=== PATIENT | male | born 1950 | race Caucasian/White ===

== ENCOUNTER 2024-09-21 15:55 | Inpatient (IN) | payer OTHER, MEDICARE ==
[~2024-09-21] VITALS: Ht 162.6 cm; Wt 122.0 kg
[~2024-09-21 15:55] MED LIST: ALLO100T PO; ASPI81CH43 PO; ATOR10TA52 PO; BACL20TA PO; CETI10TA93 PO; GABA-1250 PO; HYDR25TA4 PO; MET25T PO; METF-370 PO; OMEP20TA44 PO; OXYB5TAB24 PO
[2024-09-21 16:42] LABS: Basophils # (auto) 0.1 10 ^3/uL (0-0.2); Basophils % (auto) 0.3 % (0.0-2.0); Eosinophils # (auto) 0 10 ^3/uL (0-0.8); Eosinophils % (auto) 0.1 % (0.0-7.0); Hematocrit 41.7 % (41.0-53.0); Hemoglobin 14.1 g/dL (13.5-17.5); Lymphocytes # (auto) 1.2 10 ^3/uL (0.4-5.4); Lymphocytes % (auto) 6.2 % (10.0-50.0); Mean Corpuscular Hemoglobin 27.7 pg (28.0-32.0); Mean Corpuscular Hgb Conc. 33.8 g/dL (32.0-36.0); Monocytes # (auto) 1.6 10 ^3/uL (0-1.3); Monocytes % (auto) 8.1 % (0.0-12.0); Neutrophils # (auto) 16.7 10 ^3/uL (1.6-8.6); Neutrophils % (auto) 85.3 % (37.0-80.0); Platelet Count (auto) 196 10^3/uL (140-450); Red Blood Cells 5.08 10^6/uL (4.5-5.90); White Blood Cell 19.6 10^3/uL (4.4-10.8)
--- NOTE | 2024-09-21 17:19 | DVH ---
Indication: pain Technique: CT axial images of the abdomen and pelvis are obtained without contrast. Coronal and sagit nova reformats were obtained. Radiation Dose Information: CTDI volume is 24.86 mGy. Dose-length product is 1277.04 mGy*cm Comparison: None FINDINGS: There is limited interpretation of the abdomen and pelvis without administration of intravenous contr ast. Lung bases demonstrate 6 mm right lower lobe pulmonary nodule. Indeterminate right adrenal nodule measuring 1 cm. 1.3 cm right adrenal myelolipoma. Left adrenal gla nd unremarkable. Spleen unremarkable. Pancreatic calcifications likely sequela of chronic pancreatit is changes. Cholecystectomy. Liver capsule mildly nodular morphology. 1 cm left hepatic lobe hypodens ity, incompletely characterized. The bilateral kidneys demonstrate no hydronephrosis / nephrolithiasis. Stomach is relatively nondistended. Small bowel loops are normal in caliber. Moderate volume stool in the colon. 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 Aortic atherosclerotic disease. Bladder wall thickening with extensive surrounding stranding. Bladder calculus measuring 1.3 cm. Smal l bilateral fat containing inguinal hernias. [id number] bilateral sacroiliac degenerative joint disease. Severe thoracolumbar degenerative d isc disease. IMPRESSION: 1. Bladder wall thickening with surrounding stranding, likely representing cystitis. 2. Bladder calculus measuring 1.3 cm. 3. 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 angiogram abdomen to appropriately characterize and evaluate. 4. Left hepatic lobe hypodense lesion measuring 1 cm which can be further characterized on a multipha sic MRI abdomen with and without contrast. 5. Indeterminate right adrenal nodule measuring 1 cm. Recommend MRI abdomen, adrenal mass protocol t o characterize. 6. A 6 mm right lower lobe pulmonary nodule. Recommend 7. Follow-up per Fleischner society criteria guidelines. Other findings as described.
[2024-09-21 17:47] LABS: Anion Gap 9 (5-15); Carbon Dioxide 26 mmol/L (20-31); Chloride 102 mmol/L (98-107); Potassium 3.5 mmol/L (3.5-5.1); Sodium 137 mmol/L (136-145)
[2024-09-21 17:48] LABS: Calcium 9.7 mg/dL (8.7-10.4)
[2024-09-21 17:53] LABS: BUN/Creatinine Ratio 13.1 (10.0-20.0); Blood Urea Nitrogen 14 mg/dL (9-23)
[2024-09-21 18:09] LABS: Glucose 249 mg/dL (74-106)
--- NOTE | 2024-09-21 19:44 | ED.PDOC ---
History of Present Illness HPI Comments 74-year-old male who comes in with chief complaint of shortness for breath and generalized weakness times approximately two weeks. The patient came from home and states that he has also been having some difficulty self cathing. This has been going on over the past few days. He has been having some dysuria as well as nausea. The patient states that over the past few days he has been outside working in the heat. The patient does have a history of kidney disease as well as BPH. Chief Complaint: Urinary Time Seen by MD: 15:56 Primary Care Provider: MI Reviewed Notes: Nurses Notes, Automotive Specialty Technician Notes, Medications, Allergies (No allergies to medications) Allergies: Coded Allergies: NO KNOWN ALLERGIES (Unverified , 03/06/15) Home Meds Active Scripts Aspirin (Asa) 81 Mg Ch, 81 MG PO DAILY, #30 Prov:ESTEFANY JAFFE MD 03/14/15 Metoprolol Tartrate (Lopressor) 25 Mg Tb, 25 MG PO BID, #60 Prov:ESTEFANY JAFFE MD 03/14/15 Reported Medications Oxybutynin Chloride (Ditropan Xl) 5 Mg Tab, 5 MG PO BID, TAB 03/06/15 Omeprazole (Cvs Omeprazole) 20 Mg Tab, 20 MG PO BIDAC, TAB 03/06/15 Metformin Hydrochloride (Metformin Hcl) 500 Mg Tab, 250 MG PO DAILY, #60 TAB 3 Refills 03/06/15 Hydrochlorothiazide (Hydrochlorothiazide) 25 Mg Tab, 1 TAB PO DAILY, #30 TAB 5 Refills 03/06/15 Gabapentin (Gabapentin) 300 Mg Cap, 1 CAP PO TID, #90 CAP 5 Refills 03/06/15 Cetirizine Hcl (Cetirizine Hcl) 10 Mg Tab, 10 MG PO DAILYP PRN for NASAL [place] ESTION, TAB 03/06/15 Baclofen (Baclofen) 20 Mg Tab, 1 TAB PO TID, #90 TAB 2 Refills 03/06/15 Atorvastatin Calcium (ATORVASTATIN CALCIUM) 10 Mg Tab, 1 TAB PO DAILY, #30 TAB 5 Refills 03/06/15 Allopurinol (Allopurinol) 100 Mg Tab, 100 MG PO DAILY for 30 Days, MG 03/06/15 Information Source: Patient, Emergency Med Personnel Mode of Arrival: EMS Severity: Moderate Past Medical History PAST MEDICAL HISTORY: Asthma, DM, High Lipids, HTN Surgical History: Appendectomy Family History Family History: Unobtainable Social History Smoker: Secondhand Alcohol: Denies ETOH Use Drugs: Denies Drug Use Lives In: Home Physical Exam General Appearance: Moderate Distress HEENT: Normal ENT Inspection, Pharynx Normal, TMs Normal Neck: Full Range of Motion, Non-Tender, Normal, Normal Inspection Respiratory: Chest Non-Tender, Lungs Clear, No Accessory Muscle Use, No Res piratory Distress, Normal Breath Sounds Cardiovascular: No Edema, No JVD, No Murmur, No Gallop, Normal Peripheral Pulses, Regular Rate/Rhythm Breast Exam: Deferred Gastrointestinal: No Organomegaly, Non Tender, No Pulsatile Mass, Normal Bowel Sounds, Soft Genitalia: Deferred Pelvic: Deferred Rectal: Deferred Extremities: No calf tenderness, Normal capillary refill, Normal inspection, Normal range of motion, Non-tender, No pedal edema Musculoskeletal : Apperance: Normal Neurologic: Alert, associate teacher II-XII nml as Tested, No Motor Deficits, Normal Affect, Normal Mood, No Sensory Deficits Cerebellar Function: Normal Reflexes: Normal Skin: Dry, Normal Color, Warm Lymphatic: No Adenopathy Was a procedure done? Was a procedure done?: No Differential Dx Considerations may include: Urinary retention, UTI, generalized weakness X-Ray, Labs, Meds, VS Vital Signs Date Time Temp Pulse Resp B/P (MAP) Pulse Ox O2 Delivery O2 Flow Rate FiO2 09/21/24 18:01 99.4 78 18 136/71 (92) 94 99.4 09/21/24 18:01 78 16 94 Room Air 09/21/24 16:05 98.6 78 14 140/79 (99) 94 98.6 09/21/24 15:55 77 Lab Test 09/21/24 17:02 09/21/24 16:20 Range/Units Sodium Level 137 136-145 mmol/L Potassium Level 3.5 3.5-5.1 mmol/L Chloride Level 102 98-107 mmol/L Carbon Dioxide Level 26 20-31 mmol/L Anion Gap 9 5-15 Blood Urea Nitrogen 14 9-23 mg/dL Creatinine 1.07 0.700-1.30 mg/dL Glomerular Filtration Rate Calc 72 >90 mL/min BUN/Creatinine Ratio 13.1 10.0-20.0 Serum Glucose 249 H 74-106 mg/dL Calcium Level 9.7 8.7-10.4 mg/dL White Blood Count 19.6 H 4.4-10.8 10^3/uL Red Blood Count 5.08 4.5-5.90 10^6/uL Hemoglobin 14.1 13.5-17.5 g/dL Hematocrit 41.7 41.0-53.0 % Mean Corpuscular Volume 82.0 80.0-100.0 fL Mean Corpuscular Hemoglobin 27.7 L 28.0-32.0 pg Mean Corpuscular Hemoglobin Concent 33.8 32.0-36.0 g/dL Red Cell Distribution Width 15.0 H 11.8-14.3 % Platelet Count 196 140-450 10^3/uL Mean Platelet Volume 7.9 6.9-10.8 fL Neutrophils (%) (Auto) 85.3 H 37.0-80.0 % Lymphocytes (%) (Auto) 6.2 L 10.0-50.0 % Monocytes (%) (Auto) 8.1 0.0-12.0 % Eosinophils (%) (Auto) 0.1 0.0-7.0 % Basophils (%) (Auto) 0.3 0.0-2.0 % Neutrophils # (Auto) 16.7 H 1.6-8.6 10 ^3/uL Lymphocytes # (Auto) 1.2 0.4-5.4 10 ^3/uL Monocytes # (Auto) 1.6 H 0-1.3 10 ^3/uL Eosinophils # (Auto) 0 0-0.8 10 ^3/uL Basophils # (Auto) 0.1 0-0.2 10 ^3/uL Nucleated Red Blood Cells 0.0 % Lactic Acid Level 1.8 0.4-2.0 mmol/L Scan of the abdomen and pelvis shows: IMPRESSION: 1. Bladder wall thickening with surrounding stranding, likely representing cystitis. 2. Bladder calculus measuring 1.3 cm. 3. 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 angiogram abdomen to appropriately characterize and evaluate. 4. Left hepatic lobe hypodense lesion measuring 1 cm which can be further characterized on a multiphasic MRI abdomen with and without contrast. 5. Indeterminate right adrenal nodule measuring 1 cm. Recommend MRI abdomen, adrenal mass protocol to characterize. 6. A 6 mm right lower lobe pulmonary nodule. Recommend The patient's CBC shows an elevated white blood cell count of 19.6 The patient's chemistry panel is within normal limits At this time we feel that the patient can be admitted to the hospitalist We feel that the patient is suffering from sepsis secondary to UTI The patient is being admitted at this time The patient will be started on Rocephin 1 g IV piggyback Images Reviewed?: Images reviewed and evaluated by me Time of 1ST Reevaluation: 19:54 Reevaluation 1ST: Unchanged Patient Education/Counseling: Diagnosis, Treatment, Prognosis Family Education/Counseling: No Family Present Sepsis Sepsis Reasesment Focused Exam Orders: Laboratory Tests 09/21/24 16:20: Lactic Acid Level 1.8 Departure 1 Departure Time of Disposition: 19:54 Impression: Primary Impression: Intractable abdominal pain Additional Impression: Sepsis secondary to UTI Disposition: ADMITTED INPATIENT Admit to: Med Surg Condition: Fair Critical Care Note Critical Care Time?: No Stability Stability form required: Yes Unstable for transfer: Telemetry monitoring (Telemetry monitoring required), ED Physician Assesment (Clinical assesment) Heart Score Heart Score: Heart Score Response (Comments) Value History N/A 0 EKG N/A 0 Age N/A 0 Risk Factors N/A 0 Troponin N/A 0 Total 0 PRINCESS CHANEY MD Sep 21, 2024 19:44
[2024-09-21] MEDS ORDERED: DOCUSATE SOD 100 MG CAP PO PRN (22:30)
[2024-09-21] MEDS ORDERED: MORPHINE SULFATE 4 MG/ML SYR/VIAL IV PRN (22:30)
[2024-09-21] MEDS ORDERED: NITROGLYCERIN 0.4 MG SL TAB SL PRN (22:30)
[2024-09-21] MEDS ORDERED: ONDANSETRON HCL 4 MG/2 ML VIAL IV PRN (22:30)
[2024-09-21] MEDS ORDERED: LORATADINE 10 MG TAB PO PRN (22:45)
--- NOTE | 2024-09-21 22:54 | DVHHPRES ---
History of Present Illness Resident Creating Document: OSWALD JETT RESIDENT History of Present Illness Mr. Rod, a 74-year-old male with a history of Asthma, DM, High Lipids, HTN, Gout and Appendectomy presented with a two-week history of shortness of breath and generalized weakness, along with recent difficulty self-catheterizing, dysuria, and nausea. He reported spending time working outdoors in the heat over the past few days, which may have contributed to his symptoms. He denies history of chronic kidney disease and benign prostatic hyperplasia (BPH). patient follows with [facility] limited history available publicly. Patient is asked to bring the medical documents for details. Grossly hemodynamically stable afebrile except mild distress. Review of Systems Constitutional: Yes: Chills, Malaise; No: Fever, Sweats, Weakness, Other Eyes: No: Pain, Vision change, Conjunctivae inflammation, Eyelid inflammation, Other, Redness ENT: No: Ear pain, Ear discharge, Nose pain, Nose discharge, Nose congestion, Mouth pain, Mouth swelling, Throat pain, Throat swelling, Other Respiratory: No: Cough, Dry, Shortness of breath, SOB with excertion, Wheezing, Hemoptysis, Pleuritic Pain, Sputum, Wheezing, Other Cardiovascular: No: Chest Pain, Palpitations, Orthopnea, Paroxysmal Noc. Dyspnea, Edema, Lt Headedness, Other Gastrointestinal: No: Nausea, Vomiting, Abdominal Pain, Diarrhea, Constipation, Melena, Hematochezia, Other Genitourinary: Dysuria, Frequency, Incontinence; No Hematuria; Retention; No Other Musculoskeletal: No: other, neck pain, shoulder pain, arm pain, back pain, hand pain, leg pain, foot pain Skin: No: Rash, Lesions, Jaundice, Bruising, Other Neurological: No: Weakness, Numbness, Incoordination, Change in speech, Confusion, Seizures, Other Allergies: Coded Allergies: NO KNOWN ALLERGIES (Unverified , 03/06/15) Medications Current Medications Medications Dose Ordered Sig/Tila Route Start Time Stop Time Status Last Admin Dose Admin Sodium Chloride 1,000 ml @ 120 mls/hr Q8H20M IV 09/21/24 22:30 Ondansetron HCl 4 mg Q4HP PRN IV 09/21/24 22:30 Docusate Sodium 100 mg BIDPRN PRN PO 09/21/24 22:30 Acetaminophen 650 mg Q6HP PRN PO 09/21/24 22:30 Morphine Sulfate 2 mg Q4HPRN PRN IV 09/21/24 22:30 Nitroglycerin 0.4 mg Q5MINP PRN SL 09/21/24 22:30 Morphine Sulfate 2 mg Q30M PRN IV 09/21/24 22:30 Allopurinol 100 mg DAILY PO 09/22/24 10:00 UNV Aspirin 81 mg DAILY PO 09/22/24 10:00 UNV Atorvastatin Calcium 10 mg HS PO 09/21/24 22:45 UNV Baclofen 10 mg TID PO 09/22/24 06:00 UNV Loratadine 10 mg HSPRN PRN PO 09/21/24 22:45 UNV Oxybutynin Chloride 5 mg BID PO 09/21/24 22:45 UNV Exam Vital Signs Vital Signs Date Time Temp Pulse Resp B/P (MAP) Pulse Ox O2 Delivery O2 Flow Rate FiO2 09/21/24 18:01 99.4 78 18 136/71 (92) 94 99.4 09/21/24 18:01 Room Air General Appearance: Alert, Oriented X3, Cooperative, No acute distress, mild distress, moderate distress, severe distress, Other HEENT: Atraumatic, PERRLA, EOMI, Mucous membr. moist/pink Respiratory: Clear to auscultation, Normal air movement Cardiovascular: Regular rate, Normal S1, Normal S2, No murmurs, Gallops, Rubs Abdominal: Normal bowel sounds, Soft, No tenderness, No hepatospenomegaly, No masses Extremities: No clubbing, No cyanosis, No edema, Normal pulses, No tenderness/swelling Skin: No rashes, No breakdown, No significant lesion Neuro: Normal gait, Normal speech, Strength at 5/5 X4 ext, Normal tone, Sensation intact, Cranial nerves 3-12 NL, Reflexes 2+, Other Psych/Mental Status: Mental status NL, Mood NL Labs/Xrays Labs Test 09/21/24 22:41 09/21/24 16:20 Range/Units White Blood Count 19.6 H 4.4-10.8 10^3/uL Red Blood Count 5.08 4.5-5.90 10^6/uL Hemoglobin 14.1 13.5-17.5 g/dL Hematocrit 41.7 41.0-53.0 % Mean Corpuscular Volume 82.0 80.0-100.0 fL Mean Corpuscular Hemoglobin 27.7 L 28.0-32.0 pg Mean Corpuscular Hemoglobin Concent 33.8 32.0-36.0 g/dL Red Cell Distribution Width 15.0 H 11.8-14.3 % Platelet Count 196 140-450 10^3/uL Mean Platelet Volume 7.9 6.9-10.8 fL Neutrophils (%) (Auto) 85.3 H 37.0-80.0 % Lymphocytes (%) (Auto) 6.2 L 10.0-50.0 % Monocytes (%) (Auto) 8.1 0.0-12.0 % Eosinophils (%) (Auto) 0.1 0.0-7.0 % Basophils (%) (Auto) 0.3 0.0-2.0 % Neutrophils # (Auto) 16.7 H 1.6-8.6 10 ^3/uL Lymphocytes # (Auto) 1.2 0.4-5.4 10 ^3/uL Monocytes # (Auto) 1.6 H 0-1.3 10 ^3/uL Eosinophils # (Auto) 0 0-0.8 10 ^3/uL Basophils # (Auto) 0.1 0-0.2 10 ^3/uL Nucleated Red Blood Cells 0.0 % Lactic Acid Level 1.8 0.4-2.0 mmol/L Assessment/Plan Assessment/Plan Assessment: # UTI, acute cystitis # sepsis due to above, lactic negative # cystic calculus measuring 1.3 cm, in the bladder # 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 # Left hepatic lobe hypodense lesion , needs further workup outpatient # Indeterminate right adrenal nodule measuring 1 cm, outpatient workup to consider. # History of 2nd hand smoke with 6 mm right lower lobe pulmonary nodule, close follow up outpatient was admitted # History of gout follow on patient is on allopurinol 100 mg p.o. daily # hyperlipidemia: Atorvastatin 10 mg p.o. daily. # osteoarthritis likely age related. # back pain likely due to above: Baclofen 10 mg p.o. t.i.d., gabapentin 300 p.o. t.i.d., # Essential hypertension: moderately controlled, on metoprolol tartrate 25 mg p.o. b.i.d., HCTZ head 25 mg p.o. daily, # history of diabetes mellitus, moderately controlled, at home metformin 500 p .o. b.i.d. # GERD, omeprazole 20 mg p.o. b.i.d.. # Bladder spasm: oxybutynin XL, 5 mg p.o. b.i.d. # allergic rhinitis/seasonal allergy, citrus in 10 mg p.o. p.r.n. # Grade III obesity with BMI 43.7 # H/o Cholelithiasis without evidence of cholecystitis. # Diabetes mellitus, type 2 with polyneuropathy. # Ventral hernia. # Chronic Constipation. # Polypharmacy meeting Beer's criteria with high fall risk Plan: # Daily CBC, CMP for now, blood cultures, urine culture, UA pending. # IV Zosyn for now, no previous history of resistant bugs. Coming from home , no recent hospitalization. # Recommend dedicated CT angiogram abdomen to appropriately characterize and evaluate. # PT evaluation pending. Given advanced age follow up fall precaution to continue for advanced discharge planning if need consult SW. # Left hepatic lobe hypodense lesion measuring 1 cm which can be further characterized on a multiphasic MRI abdomen with and without contrast. # Indeterminate right adrenal nodule measuring 1 cm. Recommend MRI abdomen, adrenal mass protocol to characterize. # Outpatient lung nodule follow up. # Given advanced age and sepsis, liberal blood pressure control, holding home metoprolol tartrate rate and hydrochlorothiazide for now. Targeted blood pressure 130/90 With the keeping MAP> 65 is reasonable. # continue allopurinol, atorvastatin, aspirin, baclofen, gabapentin, and oxybutynino # home cetirizine and omeprazole to be exchanged for loratadine and pantoprazole respectively in hospital Code status: Full code, addictions counselor care discussion with the plan of care needing 39 minutes. Patient is agreeable. Admitted for inpatient care of acute UTI as inpatient telemetry. Case discussed with Dr. Rahman. Plan discussed with: Patient My Orders Orders - OSWALD JETT RESIDENT Procedure Category Date Status Time Admit ADMIT 09/21/24 Transmitted 22:20 Allergies CRISTIN 09/21/24 In Process 22:20 Code Status CODE 09/21/24 Transmitted 22:20 Sodium Chloride 0.9% PHA 09/21/24 In Process 22:30 Ondansetron Hcl PHA 09/21/24 In Process (Zofran) 22:30 Docusate Sodium PHA 09/21/24 In Process Capsule (Colace 22:30 Fall Risk Precautions CRISTIN 09/21/[address] 22:20 Complete Blood Count LAB 09/22/24 Verified 04:00 Comprehensive LAB 09/22/24 Verified Metabolic Panel 04:00 Pt Request For Service PT 09/21/24 Logged 22:20 Condition: Serious CRISTIN 09/21/24 In Process 22:20 Acetaminophen Tablet PHA 09/21/24 In Process (Tylenol Tablet) 22:30 Clear Liq Diet DIET 09/22/24 Transmitted Breakfast Bedrest With Bathroom CRISTIN 09/21/24 In Process Privileg 22:20 Bedside Commode CRISTIN 09/21/24 In Process 22:20 Nitroglycerin PHA 09/21/24 In Process Sublingual (Ntrostat 22:30 Oxygen By Nasal RT 09/21/24 Transmitted Cannula 22:20 Stat Ekg For Chest CRISTIN 09/21/24 In Process Pain 22:20 Notify Of Changes CRISTIN 09/21/24 In Process From Base 22:20 Lab Analyst For CRISTIN 09/21/24 In Process 24 Hours 22:20 Emergency Dysrhythmia CRISTIN 09/21/24 In Process Protocol 22:20 Rhythm Strips Once CRISTIN 09/21/24 In Process Every Shift 22:20 Comprehensive LAB 09/21/24 In Process Metabolic Panel 22:23 Urine Bacterial JERICA 09/21/24 Logged Culture 22:23 Urinalysis LAB 09/21/24 Logged 22:23 Drug Screen LAB 09/21/24 Logged 22:23 Morphine Sulfate PHA 09/21/24 In Process Injection 22:30 Morphine Sulfate PHA 09/21/24 In Process Injection 22:30 Allopurinol Tablet PHA 09/22/24 Transmitted (Zyloprim Tablet) 10:00 Aspirin Tablet PHA 09/22/24 Transmitted 10:00 Atorvastatin (Lipitor) PHA 09/21/24 Transmitted 22:45 Baclofen Tablet PHA 09/22/24 Transmitted (Liorisal Tablet) 06:00 Loratadine Tablet PHA 09/21/24 Transmitted (Claritin Tablet) 22:45 Oxybutynin Chloride PHA 09/21/24 Transmitted Tablet (Ditropan Tab 22:45 Fall Precautions CRISTIN 09/21/24 Transmitted Initiated 22:38 Fall Risk Precautions CRISTIN 09/21/[address] 22:38 Hemoglobin A1c LAB 09/21/24 Transmitted 22:38 Date of Service: Sep 21, 2024 Billing Provider: EMILEE RAHMAN MD Common Visit Codes: [id number] INP/OBS CARE (HIGH) Secondary Visit Codes: [id number] CARE PLAN 30 MINUTES OSWALD JETT RESIDENT Sep 21, 2024 22:54 EMILEE RAHMAN MD Sep 23, 2024 22:18
[2024-09-21 23:14] LABS: Alanine Aminotransferase 13 U/L (7-40); Albumin 4.3 g/dL (3.2-4.8); Alkaline Phosphatase 104 U/L (46-116); Anion Gap 8 (5-15); BUN/Creatinine Ratio 13.2 (10.0-20.0); Blood Urea Nitrogen 15 mg/dL (9-23); Calcium 9.7 mg/dL (8.7-10.4); Carbon Dioxide 26 mmol/L (20-31); Chloride 103 mmol/L (98-107); Potassium 3.7 mmol/L (3.5-5.1); Sodium 137 mmol/L (136-145); Total Protein 7.4 g/dL (5.7-8.2)
[2024-09-21 23:15] LABS: Aspartate Aminotransferase 10 U/L (13-40); Bilirubin, Total 2.5 mg/dL (0.2-1.0); Glucose 225 mg/dL (74-106)
[2024-09-22] VITALS (8 sets, daily range): BP systolic 115–139; BP diastolic 55–76; PULSE 62–79; RESP 14–18; TEMP 98–99; O2SAT 91–94
[2024-09-22] MEDS ORDERED: DEXTROSE (50%) 50ML SYRG IV PRN
[2024-09-22] MEDS ORDERED: INSU1INJ26 SC (01:58)
[2024-09-22] MEDS: ATORVASTATIN 20 MG TAB PO SCH (02:09)
[2024-09-22] MEDS: OXYBUTYNIN CHL 5 MG TAB PO SCH (02:09)
[2024-09-22] MEDS: SODIUM CHLORIDE 0.9% 1,000 ML IV SCH ×2 (02:09→13:59)
[2024-09-22] MEDS: cefTRIAXone 1GM/50ML D5W 50 ML IV ONE ×2 (02:09→13:58)
[2024-09-22] MEDS: MORPHINE SULFATE 4 MG/ML SYR/VIAL IV PRN (03:26)
[2024-09-22] MEDS: ACETAMINOPHEN 325 MG TAB PO PRN (03:40)
[2024-09-22 03:49] LABS: Urine Bacteria None Seen /hpf (None Seen)
[2024-09-22 04:11] LABS: Amphetamine Screen, Urine Neg (NEGATIVE)
[2024-09-22 04:13] LABS: Barbiturate Scree,Urine Neg (NEGATIVE); Benzodiazephine Screen, Urine Neg (NEGATIVE); Cannabinoid Screen, Urine Neg (NEGATIVE); Cocaine Screen, Urine Neg (NEGATIVE); Opiate Scree,Urine Pos (NEGATIVE); Phencyclidine Screen, Urine Neg (NEGATIVE)
[2024-09-22 04:46] LABS: Urine Blood 2+ /uL (Negative); Urine Clarity Ex.Turbid (Clear); Urine Color Light-Orange (Yellow); Urine Protein, UAD 1+ (Negative); Urine Specific Gravity 1.017 (1.001-1.035); Urine Squamous Epithelial Cell None Seen /hpf (<5); Urine Urobilinogen Normal (Negative); Urine WBC 1959 /HPF (0-3); Urine WBC Clumps PRESENT /hpf (None Seen); Urine pH 5.5 (5.0-9.0)
[2024-09-22 05:53] LABS: Basophils # (auto) 0 10 ^3/uL (0-0.2); Basophils % (auto) 0.2 % (0.0-2.0); Eosinophils # (auto) 0 10 ^3/uL (0-0.8); Eosinophils % (auto) 0.2 % (0.0-7.0); Hematocrit 37.7 % (41.0-53.0); Hemoglobin 12.8 g/dL (13.5-17.5); Lymphocytes % (auto) 6.4 % (10.0-50.0); Mean Corpuscular Hemoglobin 27.3 pg (28.0-32.0); Mean Corpuscular Hgb Conc. 33.9 g/dL (32.0-36.0); Mean Corpuscular Volume 80.6 fL (80.0-100.0); Monocytes # (auto) 1.2 10 ^3/uL (0-1.3); Monocytes % (auto) 7.6 % (0.0-12.0); Neutrophils # (auto) 13.5 10 ^3/uL (1.6-8.6); Neutrophils % (auto) 85.6 % (37.0-80.0); Nucleated Red Blood Cells % 0.1 %; Platelet Count (auto) 185 10^3/uL (140-450); Red Blood Cells 4.68 10^6/uL (4.5-5.90); White Blood Cell 15.7 10^3/uL (4.4-10.8)
[2024-09-22] MEDS: InsuLIN REG 1unit/0.01ml Soln (100units/ml) SC SCH (06:07)
[2024-09-22] MEDS: BACLOFEN 10 MG TAB PO SCH (06:08)
[2024-09-22 06:11] LABS: Alanine Aminotransferase 11 U/L (7-40); Albumin 3.7 g/dL (3.2-4.8); Alkaline Phosphatase 93 U/L (46-116); Anion Gap 7 (5-15); BUN/Creatinine Ratio 17.2 (10.0-20.0); Blood Urea Nitrogen 17 mg/dL (9-23); Calcium 9.1 mg/dL (8.7-10.4); Carbon Dioxide 28 mmol/L (20-31); Chloride 103 mmol/L (98-107); Potassium 3.5 mmol/L (3.5-5.1); Sodium 138 mmol/L (136-145); Total Protein 6.4 g/dL (5.7-8.2)
[2024-09-22] MEDS: ACCU-CHEK COMFORT CURVE STRIP VI SCH (06:11)
[2024-09-22 06:14] LABS: Aspartate Aminotransferase 9 U/L (13-40); Bilirubin, Total 1.3 mg/dL (0.2-1.0); Glucose 221 mg/dL (74-106)
[2024-09-22] MEDS: INSULIN LANTUS (GLARGINE) 1 /0.01ml (100units/ml) SC SCH (09:21)
[2024-09-22] MEDS: ALLOPURINOL 100 MG TAB PO SCH (09:33)
[2024-09-22] MEDS: ASPirin 81 mg TAB PO SCH (09:34)
--- NOTE | 2024-09-22 13:37 | DVHPN2 ---
Reviewed: Care Plan, H&P, Labs, Medications, Previous Orders, Radiology Changes from previous H/P or p: No Changes Eyes: No Pain, No Vision change, No Conjunctivae inflammation, No Eyelid inflammation, No Other, No Redness ENT: No Ear pain, No Ear discharge, No Nose pain, No Nose discharge, No Nose congestion, No Mouth pain, No Mouth swelling, No Throat pain, No Throat swelling, No Other Cardiovascular: No Chest Pain, No Palpitations, No Orthopnea, No Paroxysmal Noc. Dyspnea, No Edema, No Lt Headedness, No Other Respiratory: No Cough, No Dry, No Shortness of breath, No SOB with excertion, No Wheezing, No Hemoptysis, No Pleuritic Pain, No Sputum, No Other Gastrointestinal: No Nausea, No Vomiting, No Abdominal Pain, No Diarrhea, No Constipation, No Melena, No Hematochezia, No Other Genitourinary: Dysuria, Frequency, Incontinence; No Hematuria; Retention; No Other Musculoskeletal: No other, No neck pain, No shoulder pain, No arm pain, No back pain, No hand pain, No leg pain, No foot pain Skin: No Rash, No Lesions, No Jaundice, No Bruising, No Other Objective Vitals Vital Signs Date Time Temp Pulse Resp B/P (MAP) Pulse Ox O2 Delivery O2 Flow Rate FiO2 09/22/24 12:57 98.1 63 17 115/55 (75) 94 98.1 09/22/24 08:00 Room Air* 0 21 Intake/Output Intake and Output 09/22/24 07:00 Intake Total 200 ml Output Total 850 ml Balance -650 ml Intake Oral 200 ml Output Urine Total 850 ml Medications Current Medications Medications Dose Ordered Sig/Tila Route Start Time Stop Time Status Last Admin Dose Admin Sodium Chloride 1,000 ml @ 120 mls/hr Q8H20M IV 09/21/24 22:30 09/22/24 06:10 120 MLS/HR Ondansetron HCl 4 mg Q4HP PRN IV 09/21/24 22:30 Docusate Sodium 100 mg BIDPRN PRN PO 09/21/24 22:30 Acetaminophen 650 mg Q6HP PRN PO 09/21/24 22:30 09/22/24 03:40 650 MG Morphine Sulfate 2 mg Q4HPRN PRN IV 09/21/24 22:30 09/22/24 03:26 2 MG Nitroglycerin 0.4 mg Q5MINP PRN SL 09/21/24 22:30 Morphine Sulfate 2 mg Q30M PRN IV 09/21/24 22:30 Allopurinol 100 mg DAILY PO 09/22/24 10:00 09/22/24 09:33 100 MG Aspirin 81 mg DAILY PO 09/22/24 10:00 09/22/24 09:34 81 MG Atorvastatin Calcium 10 mg HS PO 09/21/24 22:45 09/22/24 02:09 10 MG Baclofen 10 mg TID PO 09/22/24 06:00 09/22/24 06:08 10 MG Loratadine 10 mg HSPRN PRN PO 09/21/24 22:45 Oxybutynin Chloride 5 mg BID PO 09/21/24 22:45 09/22/24 09:32 5 MG Diagnostic Test (Pha) 1 strip ACHS 09/22/24 07:00 09/22/24 11:41 1 STRIP Insulin Human Regular ACHS SC 09/22/24 07:00 09/22/24 11:41 4 UNITS Dextrose 50 ml UD PRN IV 09/22/24 00:00 Insulin Glargine 20 units DAILY@1000 SC 09/22/24 08:00 09/22/24 09:21 20 UNITS Laboratory Results Laboratory Tests 09/22/24 05:23 Chemistry Test 09/21/24 17:02 09/21/24 22:41 09/22/24 05:23 Calcium Level 9.7 mg/dL (8.7-10.4) 9.7 mg/dL (8.7-10.4) 9.1 mg/dL (8.7-10.4) Albumin 4.3 g/dL (3.2-4.8) 3.7 g/dL (3.2-4.8) Total Protein 7.4 g/dL (5.7-8.2) 6.4 g/dL (5.7-8.2) LFT Test 09/21/24 22:41 09/22/24 05:23 Alanine Aminotransferase (ALT) 13 U/L (7-40) 11 U/L (7-40) Alkaline Phosphatase 104 U/L (46-116) 93 U/L (46-116) Aspartate Amino Transferase (AST) 10 U/L (13-40) L 9 U/L (13-40) L Total Bilirubin 2.5 mg/dL (0.2-1.0) H 1.3 mg/dL (0.2-1.0) H HgA1c, TSH Test 09/21/24 16:20 Hemoglobin A1c 9.1 % A1C (<5.7) H Urinalysis Test 09/22/24 03:30 Urine Color Light-orange (Yellow) Urine Clarity Ex.turbid (Clear) Urine pH 5.5 (5.0-9.0) Urine Specific [place] 1.017 (1.001-1.035) Urine Protein 1+ (Negative) H Urine Ketones Trace (Negative) Urine Blood 2+ /uL (Negative) H Urine Nitrite 2+ (Negative) H Urine Bilirubin Negative (Negative) Urine Urobilinogen Normal mg/dL (Negative) Urine Leukocyte Esterase 3+ /uL (Negative) Urine RBC 158 /hpf (0 - 3) Urine WBC Clumps Present /hpf (None Seen) Urine Microscopic WBC 1959 /HPF (0-3) H Urine Squamous Epithelial Cells None seen /hpf (<5) Urine Bacteria None seen /hpf (None Seen) Urine Glucose 3+ mg/dL (Normal) H Labs and/or images reviewed: Labs reviewed by me, Image(s) reviewed by me Assessment/Plan Assessment/Plan Sepsis secondary to urinary tract infection WBC 20 K: Blood cultures urine cultures, Rocephin Bladder calculus 1.3 cm Gout Hypercholesterolemia Osteoarthritis Hypertension Diabetes Diabetic neuropathy vasculopathy Ventral hernia Chronic back pain BPH patient does self catheterization at home. Time Spent 70 minutes Advanced care planning time 20 minutes Patient is full code Plan discussed with: Patient My Orders Orders - RACHEL CASAS MD Procedure Category Date Status Time Communication Order ORDERS 09/22/24 Transmitted 13:25 Date of Service: Sep 22, 2024 Billing Provider: RACHEL CASAS MD Common Visit Codes: [id number] CARE 30-74 MIN RACHEL CASAS MD Sep 22, 2024 13:37
[2024-09-22] MEDS ORDERED: KETOROLAC TROMETH 30 MG/ML 1ML VIAL IV PRN (13:45)
[2024-09-22] MEDS: KETOROLAC TROMETH 30 MG/ML 1ML VIAL IV PRN (17:45)
--- NOTE | 2024-09-22 18:46 | ECG ---
[facility] Test Date: 2024-09-21 Test Time: 15:53:36 Pat Name: CARLOS JURADO Department: ED Room: 0286T Gender: M [employer]el Bearing Maker: ANUPAMA : [id number] Requested By: PRINCESS CHANEY Order Number: [id number] Reading MD: Edgar Molina Measurements Intervals [place] Rate: 77 P: -33 WV: 199 QRS: -69 QRSD: 124 T: 56 QT: 398 QTc: 451 Interpretive Statements Sinus rhythm Nonspecific IVCD with LAD Consider anterior infarct Baseline wander in lead(s) V6 Electronically Signed On 09-26-2024 20:36:55 PDT by Edgar Molina Please click the below link to view image of tracing.
[2024-09-23] VITALS (8 sets, daily range): BP systolic 105–145; BP diastolic 57–82; PULSE 62–78; RESP 17–18; TEMP 97.5–99; O2SAT 94–97
[2024-09-23] MEDS: cefTRIAXone 1GM/50ML D5W 50 ML IV SCH (09:00)
--- NOTE | 2024-09-23 12:23 | DVHPN2 ---
Reviewed: Care Plan, H&P, Labs, Medications, Previous Orders, Radiology Changes from previous H/P or p: No Changes Eyes: No Pain, No Vision change, No Conjunctivae inflammation, No Eyelid inflammation, No Other, No Redness ENT: No Ear pain, No Ear discharge, No Nose pain, No Nose discharge, No Nose congestion, No Mouth pain, No Mouth swelling, No Throat pain, No Throat swelling, No Other Cardiovascular: No Chest Pain, No Palpitations, No Orthopnea, No Paroxysmal Noc. Dyspnea, No Edema, No Lt Headedness, No Other Respiratory: No Cough, No Dry, No Shortness of breath, No SOB with excertion, No Wheezing, No Hemoptysis, No Pleuritic Pain, No Sputum, No Other Gastrointestinal: No Nausea, No Vomiting, No Abdominal Pain, No Diarrhea, No Constipation, No Melena, No Hematochezia, No Other Genitourinary: Dysuria, Frequency, Incontinence; No Hematuria; Retention; No Other Musculoskeletal: No other, No neck pain, No shoulder pain, No arm pain, No back pain, No hand pain, No leg pain, No foot pain Skin: No Rash, No Lesions, No Jaundice, No Bruising, No Other Objective Vitals Vital Signs Date Time Temp Pulse Resp B/P (MAP) Pulse Ox O2 Delivery O2 Flow Rate FiO2 09/23/24 09:00 98.9 65 18 136/76 (96) 96 98.9 09/23/24 08:00 Room Air* 0 21 Intake/Output Intake and Output 09/23/24 07:00 Intake Total 3285 ml Output Total 1500 ml Balance 1785 ml Intake Oral 1375 ml IV Total 1910 ml Output Urine Total 1500 ml # Bowel Movements 1 Medications Current Medications Medications Dose Ordered Sig/Tila Route Start Time Stop Time Status Last Admin Dose Admin Ondansetron HCl 4 mg Q4HP PRN IV 09/21/24 22:30 Docusate Sodium 100 mg BIDPRN PRN PO 09/21/24 22:30 Acetaminophen 650 mg Q6HP PRN PO 09/21/24 22:30 09/22/24 03:40 650 MG Morphine Sulfate 2 mg Q4HPRN PRN IV 09/21/24 22:30 09/22/24 03:26 2 MG Nitroglycerin 0.4 mg Q5MINP PRN SL 09/21/24 22:30 Morphine Sulfate 2 mg Q30M PRN IV 09/21/24 22:30 Allopurinol 100 mg DAILY PO 09/22/24 10:00 09/23/24 10:16 100 MG Aspirin 81 mg DAILY PO 09/22/24 10:00 09/23/24 10:16 81 MG Atorvastatin Calcium 10 mg HS PO 09/21/24 22:45 09/22/24 20:54 10 MG Baclofen 10 mg TID PO 09/22/24 06:00 09/23/24 05:57 10 MG Loratadine 10 mg HSPRN PRN PO 09/21/24 22:45 Oxybutynin Chloride 5 mg BID PO 09/21/24 22:45 09/23/24 10:16 5 MG Diagnostic Test (Pha) 1 strip ACHS 09/22/24 07:00 09/23/24 11:44 1 STRIP Insulin Human Regular ACHS SC 09/22/24 07:00 09/23/24 11:44 6 UNITS Dextrose 50 ml UD PRN IV 09/22/24 00:00 Insulin Glargine 20 units DAILY@1000 SC 09/22/24 08:00 09/23/24 09:56 20 UNITS Ceftriaxone Sodium 50 ml @ 100 mls/hr DAILY@09 IV 09/23/24 09:00 09/23/24 09:00 100 MLS/HR Sodium Chloride 1,000 ml @ 150 mls/hr Q6H40M IV 09/22/24 13:45 09/23/24 09:45 150 MLS/HR Ketorolac Tromethamine 15 mg Q6HPRN PRN IV 09/22/24 14:00 09/27/24 13:59 09/23/24 10:14 15 MG Laboratory Results Laboratory Tests 09/22/24 05:23 Urinalysis Test 09/22/24 03:30 Urine Color Light-orange (Yellow) Urine Clarity Ex.turbid (Clear) Urine pH 5.5 (5.0-9.0) Urine Specific [place] 1.017 (1.001-1.035) Urine Protein 1+ (Negative) H Urine Ketones Trace (Negative) Urine Blood 2+ /uL (Negative) H Urine Nitrite 2+ (Negative) H Urine Bilirubin Negative (Negative) Urine Urobilinogen Normal mg/dL (Negative) Urine Leukocyte Esterase 3+ /uL (Negative) Urine RBC 158 /hpf (0 - 3) Urine WBC Clumps Present /hpf (None Seen) Urine Microscopic WBC 1959 /HPF (0-3) H Urine Squamous Epithelial Cells None seen /hpf (<5) Urine Bacteria None seen /hpf (None Seen) Urine Glucose 3+ mg/dL (Normal) H Microbiology Microbiology Date/Time Source Procedure Growth Status 09/21/24 17:02 Blood Blood Culture - Preliminary NO GROWTH AFTER 24 HOURS OF INCUBATION. Resulted Labs and/or images reviewed: Labs reviewed by me, Image(s) reviewed by me Assessment/Plan Assessment/Plan Sepsis secondary to urinary tract infection WBC 20 K: Blood cultures negative, urine cultures pending, continue Rocephin Bladder calculus 1.3 cm consult for Urology Dr. Castro Gout Hypercholesterolemia Osteoarthritis Hypertension Diabetes Diabetic neuropathy vasculopathy Ventral hernia Chronic back pain Stenosis of the celiac artery: Cardiology consult by Dr. Gerson Hoyt 1 cm hypodense lesion left lobe of the liver: MRI of the abdomen with and without contrast ordered BPH patient does self catheterization at home. Time Spent 50 minutes Advanced care planning time 20 minutes Patient is full code Plan discussed with: Patient My Orders Orders - RACHEL CASAS MD Procedure Category Date Status Time Communication Order ORDERS 09/22/24 Transmitted 13:25 Ceftriaxone 1gm/50ml PHA 09/23/24 In Process D5w (Rocephin) 09:00 Sodium Chloride 0.9% PHA 09/22/24 In Process 13:45 Soft Diet DIET 09/22/24 Transmitted Dinner Ketorolac Injection PHA 09/22/24 In Process (Toradol Injection) 14:00 Date of Service: Sep 23, 2024 Billing Provider: RACHEL CASAS MD Common Visit Codes: [id number] INP/OBS CARE(HIGH) RACHEL CASAS MD Sep 23, 2024 12:23
[2024-09-23] MEDS ORDERED: GADOTERATE MEG 10 MMOL/20ml INJ (0.5MMOL/ml) IV ONE (16:31)
--- NOTE | 2024-09-23 17:20 | DVHINCON2 ---
Date Seen: Sep 23, 2024 Referring Physician MD Kenney Reason for Consultation Stenosis of proximal celiac artery History of Present Illness This is a 74-year-old male patient who presents to the emergency room with chief complaint of generalized weakness and urinary retention. He comes to the emergency room for further evaluation. Cardiology has been consulted at this time for stenosis of proximal celiac artery. The patient denies any cardiac symptoms. Unable to obtain twelve lead electrocardiogram as it is not in patient's hard chart. 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 No troponin levels drawn during this admission. Significant past medical history includes obstructive sleep apnea with CPAP use, COPD, type 2 diabetes mellitus, chronic kidney disease, benign prostatic hyperplasia with urinary retention requiring self catheterization, PTSD, and morbid obesity. Past Medical History Past medical history reviewed. No other significant than mentioned above. Past Surgical History Cholecystectomy Family History: FH: ADHD (attention deficit hyperactivity disorder) G8 BROTHER 19 CHILD Family history: Asthma G8 MOTHER Family history: Cardiovascular disease G8 SISTER Family History Family history reviewed. Social History The patient has a 25 pack-year history, quit smoking approximately 36 years ago Denies any illicit drug use Denies any alcohol use Allergies: Coded Allergies: NO KNOWN ALLERGIES (Unverified , 03/06/15) Home Meds Active Scripts Aspirin (Asa) 81 Mg Ch, 81 MG PO DAILY, #30 Prov:ESTEFANY JAFFE MD 03/14/15 Metoprolol Tartrate (Lopressor) 25 Mg Tb, 25 MG PO BID, #60 Prov:ESTEFANY JAFFE MD 03/14/15 Reported Medications Insulin Aspart Protamine & Asp (Insulin Aspart Protamine/ (70-30) 100 Unit/ml) 1 Inj Inj, 1 INJ SC BID, INJ 09/22/24 Oxybutynin Chloride (Ditropan Xl) 5 Mg Tab, 5 MG PO BID, TAB 03/06/15 Omeprazole ([facility] Omeprazole) 20 Mg Tab, 20 MG PO BIDAC, TAB 03/06/15 Metformin Hydrochloride (Metformin Hcl) 500 Mg Tab, 250 MG PO DAILY, #60 TAB 3 Refills 03/06/15 Hydrochlorothiazide (Hydrochlorothiazide) 25 Mg Tab, 1 TAB PO DAILY, #30 TAB 5 Refills 03/06/15 Gabapentin (Gabapentin) 300 Mg Cap, 1 CAP PO TID, #90 CAP 5 Refills 03/06/15 Cetirizine Hcl (Cetirizine Hcl) 10 Mg Tab, 10 MG PO DAILYP PRN for NASAL CONGESTION, TAB 03/06/15 Baclofen (Baclofen) 20 Mg Tab, 1 TAB PO TID, #90 TAB 2 Refills 03/06/15 Atorvastatin Calcium (ATORVASTATIN CALCIUM) 10 Mg Tab, 1 TAB PO DAILY, #30 TAB 5 Refills 03/06/15 Allopurinol (Allopurinol) 100 Mg Tab, 100 MG PO DAILY for 30 Days, MG 03/06/15 Home Meds Home medications reviewed. Current Medications Current Medications Medications (Trade) Dose Ordered Sig/Tila Route PRN Reason Start Time Stop Time Status Last Admin Ceftriaxone Sodium 50 ml @ 100 mls/hr DAILY@09 IV 09/23/24 09:00 09/23/24 09:00 Review of Systems Constitutional: Generalized weakness Ears, Nose, & Throat: No symptom reported Eyes: No symptom reported Neurological: No symptoms reported Pulmonary/Respiratory: No symptoms reported Cardiovascular: No symptom reported Gastrointestinal: No symptom reported Genitourinary: Urinary retention Musculoskeletal: No symptom reported Skin: No symptom reported Psychiatric: No symptom reported Endocrine: No symptom reported Hematologic/Lymphatic: No symptom reported Vital Signs Vital Signs Date Time Temp Pulse Resp B/P (MAP) Pulse Ox O2 Delivery O2 Flow Rate FiO2 09/23/24 17:06 97.5 69 18 119/80 (93) 96 97.5 09/23/24 08:00 Room Air* 0 21 Physical Exam General Appearance: Cooperative. Morbidly obese Pulmonary/Respiratory: Clear, bilateral breaths sounds. Cardiovascular/Chest: Regular rate and rhythm. Peripheral Pulses: 2+ Radial (R). 2+ Radial (L). 2+ Pedal (R). 2+ Pedal (L) Abdominal Exam: Normal bowel sounds. Ankle Exam: 3+ pitting edema Lower extremities: 3+ pitting edema Neuro/Mental Status: A/OX4, coherent. Thoughts/Psych: Normal thought pattern. Appropriate mood and affect. Good judgment and insight. Appearance: No acute distress. Skin Exam: Normal inspection. Normal color. Warm and dry. Labs/Diagnostic Data Labs Test 09/23/24 11:36 09/22/24 05:23 09/22/24 03:30 09/21/24 16:20 Range/Units POC Glucose 259 H 70-106 mg/dl White Blood Count 15.7 H 4.4-10.8 10^3/uL Red Blood Count 4.68 4.5-5.90 10^6/uL Hemoglobin 12.8 L 13.5-17.5 g/dL Hematocrit 37.7 L 41.0-53.0 % Mean Corpuscular Volume 80.6 80.0-100.0 fL Mean Corpuscular Hemoglobin 27.3 L 28.0-32.0 pg Mean Corpuscular Hemoglobin Concent 33.9 32.0-36.0 g/dL Red Cell Distribution Width 15.0 H 11.8-14.3 % Platelet Count 185 140-450 10^3/uL Mean Platelet Volume 7.6 6.9-10.8 fL Neutrophils (%) (Auto) 85.6 H 37.0-80.0 % Lymphocytes (%) (Auto) 6.4 L 10.0-50.0 % Monocytes (%) (Auto) 7.6 0.0-12.0 % Eosinophils (%) (Auto) 0.2 0.0-7.0 % Basophils (%) (Auto) 0.2 0.0-2.0 % Neutrophils # (Auto) 13.5 H 1.6-8.6 10 ^3/uL Lymphocytes # (Auto) 1.0 0.4-5.4 10 ^3/uL Monocytes # (Auto) 1.2 0-1.3 10 ^3/uL Eosinophils # (Auto) 0 0-0.8 10 ^3/uL Basophils # (Auto) 0 0-0.2 10 ^3/uL Nucleated Red Blood Cells 0.1 % Sodium Level 138 136-145 mmol/L Potassium Level 3.5 3.5-5.1 mmol/L Chloride Level 103 98-107 mmol/L Carbon Dioxide Level 28 20-31 mmol/L Anion Gap 7 5-15 Blood Urea Nitrogen 17 9-23 mg/dL Creatinine 0.99 0.700-1.30 mg/dL Glomerular Filtration Rate Calc 79 >90 mL/min BUN/Creatinine Ratio 17.2 10.0-20.0 Serum Glucose 221 H 74-106 mg/dL Calcium Level 9.1 8.7-10.4 mg/dL Total Bilirubin 1.3 H 0.2-1.0 mg/dL Aspartate Amino Transferase (AST) 9 L 13-40 U/L Alanine Aminotransferase (ALT) 11 7-40 U/L Alkaline Phosphatase 93 46-116 U/L Total Protein 6.4 5.7-8.2 g/dL Albumin 3.7 3.2-4.8 g/dL Urine Color Light-orange Yellow Urine Clarity Ex.turbid Clear Urine pH 5.5 5.0-9.0 Urine Specific [place] 1.017 1.001-1.035 Urine Protein 1+ H Negative Urine Ketones Trace Negative Urine Blood 2+ H Negative /uL Urine Nitrite 2+ H Negative Urine Bilirubin Negative Negative Urine Urobilinogen Normal Negative mg/dL Urine Leukocyte Esterase 3+ Negative /uL Urine RBC 158 0 - 3 /hpf Urine WBC Clumps Present None Seen /hpf Urine Microscopic WBC 1959 H 0-3 /HPF Urine Squamous Epithelial Cells None seen <5 /hpf Urine Bacteria None seen None Seen /hpf Urine Glucose 3+ H Normal mg/dL Urine Opiates Screen Pos NEGATIVE Urine Fentanyl Screen Neg NEGATIVE Urine Barbiturates Screen Neg NEGATIVE Urine Phencyclidine Screen Neg NEGATIVE Urine Amphetamines Screen Neg NEGATIVE Urine Benzodiazepines Screen Neg NEGATIVE Urine Cocaine Screen Neg NEGATIVE Urine Cannabinoids Screen Neg NEGATIVE Hemoglobin A1c 9.1 H <5.7 % A1C Lactic Acid Level 1.8 0.4-2.0 mmol/L Microbiology Date/Time Source Procedure Growth Status 09/21/24 17:02 Blood Blood Culture - Preliminary NO GROWTH AFTER 24 HOURS OF INCUBATION. Resulted Assessment Stenosis of proximal celiac artery Rule out structural heart disease Acute urinary tract infection Obstructive sleep apnea with CPAP use COPD Type 2 diabetes mellitus Chronic kidney disease Benign prostatic hyperplasia Urinary retention requiring self catheterization Morbid obesity Plan/Recommendation We will continue with the following plan/recommendations (Dr. Hoyt): The patient seen and examined at bedside with . We will proceed with obtaining a transthoracic echocardiogram to evaluate cardiac function. 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 We will recommend to consult Interventional Radiology at this time. Continue with close cardiac surveillance. Thank you for allowing us to care for this patient. Please call with any questions or concerns. Critical care time spent: 44 minutes This medical document was created using an electronic medical record system with voice recognition software and computerized dictation system. Although this document has been carefully reviewed, there might still be some phonetic and typographical errors. Occasional wrong-word or ``sound-alike substitutions may have occurred due to the inherent limitations of voice recognition software. These areas are purely typographical due to imperfections of the software programs and do not reflect any compromise in the patient's medical care. Please read the chart carefully and recognize, using context, where these substitutions have occurred. Plan discussed with: Patient NYHA Physical activity limitations: NA Date of Service: Sep 23, 2024 Billing Provider: CELESTINO HUTCHINSON Cardiology Common Codes: [id number] INP/OBS CARE (High) Cardiology Consultation Codes: [id number] CONSULT <45MIN CELESTINO HUTCHINSON Sep 23, 2024 17:20
--- NOTE | 2024-09-23 23:14 | DVHINCON2 ---
Date Seen: Sep 23, 2024 Referring Physician MD Kenney Reason for Consultation Stenosis of proximal celiac artery History of Present Illness This is a 74-year-old male with a PMH of past medical history includes obstructive sleep apnea with CPAP use, COPD, type 2 diabetes mellitus, chronic kidney disease, benign prostatic hyperplasia with urinary retention requiring self catheterization, PTSD, and morbid obesity who presents to the emergency room with a complaint of generalized weakness and urinary retention. He comes to the emergency room for further evaluation. Cardiology has been consulted at this time for stenosis of proximal celiac artery. The patient denies any cardi ac symptoms. Unable to obtain twelve lead electrocardiogram as it is not in patient's hard chart. 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 No troponin levels drawn during this admission. GLUC 259. CT ABD PEL shows bladder wall thickening with surrounding stranding, likely representing cystitis. Bladder calculus measuring 1.3 cm. 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 Left hepatic lobe hypodense lesion measuring 1 cm, indeterminate right adrenal nodule measuring 1 cm. A 6 mm right lower lobe pulmonary nodule. Past Medical History Past medical history reviewed. No other significant than mentioned above. Past Surgical History Cholecystectomy Family History: FH: ADHD (attention deficit hyperactivity disorder) G8 BROTHER 19 CHILD Family history: Asthma G8 MOTHER Family history: Cardiovascular disease G8 SISTER Allergies: Coded Allergies: NO KNOWN ALLERGIES (Unverified , 03/06/15) Home Meds Active Scripts Aspirin (Asa) 81 Mg Ch, 81 MG PO DAILY, #30 Prov:ESTEFANY JAFFE MD 03/14/15 Metoprolol Tartrate (Lopressor) 25 Mg Tb, 25 MG PO BID, #60 Prov:ESTEFANY JAFFE MD 03/14/15 Reported Medications Insulin Aspart Protamine & Asp (Insulin Aspart Protamine/ (70-30) 100 Unit/ml) 1 Inj Inj, 1 INJ SC BID, INJ 09/22/24 Oxybutynin Chloride (Ditropan Xl) 5 Mg Tab, 5 MG PO BID, TAB 03/06/15 Omeprazole ([facility]vs Omeprazole) 20 Mg Tab, 20 MG PO BIDAC, TAB 03/06/15 Metformin Hydrochloride (Metformin Hcl) 500 Mg Tab, 250 MG PO DAILY, #60 TAB 3 R efills 03/06/15 Hydrochlorothiazide (Hydrochlorothiazide) 25 Mg Tab, 1 TAB PO DAILY, #30 TAB 5 Refills 03/06/15 Gabapentin (Gabapentin) 300 Mg Cap, 1 CAP PO TID, #90 CAP 5 Refills 03/06/15 Cetirizine Hcl (Cetirizine Hcl) 10 Mg Tab, 10 MG PO DAILYP PRN for NASAL CONGESTION, TAB 03/06/15 Baclofen (Baclofen) 20 Mg Tab, 1 TAB PO TID, #90 TAB 2 Refills 03/06/15 Atorvastatin Calcium (ATORVASTATIN CALCIUM) 10 Mg Tab, 1 TAB PO DAILY, #30 TAB 5 Refills 03/06/15 Allopurinol (Allopurinol) 100 Mg Tab, 100 MG PO DAILY for 30 Days, MG 03/06/15 Current Medications Current Medications Medications (Trade) Dose Ordered Sig/Tila Route PRN Reason Start Time Stop Time Status Last Admin Ceftriaxone Sodium 50 ml @ 100 mls/hr DAILY@09 IV 09/23/24 09:00 09/23/24 09:00 Review of Systems Constitutional: Generalized weakness Ears, Nose, & Throat: No symptom reported Eyes: No symptom reported Neurological: No symptoms reported Pulmonary/Respiratory: No symptoms reported Cardiovascular: No symptom reported Gastrointestinal: No symptom reported Genitourinary: Urinary retention Musculoskeletal: No symptom reported Skin: No symptom reported Psychiatric: No symptom reported Endocrine: No symptom reported Hematologic/Lymphatic: No symptom reported Vital Signs Vital Signs Date Time Temp Pulse Resp B/P (MAP) Pulse Ox O2 Delivery O2 Flow Rate FiO2 09/23/24 17:06 97.5 69 18 119/80 (93) 96 97.5 09/23/24 08:00 Room Air* 0 21 Physical Exam GENERAL: Alert and oriented x 3. No acute distress. Morbid obesity. EYES: PERRL, EOMI. Anicteric. HENT: Moist mucous membranes. LUNGS: Clear to auscultation bilaterally. CARDIOVASCULAR: Regular rate and rhythm. ABDOMEN: Soft, nontender and nondistended. EXTREMITIES: 3+ pitting edema. NEUROLOGIC: No focal neurological deficits. SKIN: Warm, dry. Labs/Diagnostic Data Labs Test 09/23/24 11:36 09/22/24 05:23 09/22/24 03:30 09/21/24 16:20 Range/Units POC Glucose 259 H 70-106 mg/dl White Blood Count 15.7 H 4.4-10.8 10^3/uL Red Blood Count 4.68 4.5-5.90 10^6/uL Hemoglobin 12.8 L 13.5-17.5 g/dL Hematocrit 37.7 L 41.0-53.0 % Mean Corpuscular Volume 80.6 80.0-100.0 fL Mean Corpuscular Hemoglobin 27.3 L 28.0-32.0 pg Mean Corpuscular Hemoglobin Concent 33.9 32.0-36.0 g/dL Red Cell Distribution Width 15.0 H 11.8-14.3 % Platelet Count 185 140-450 10^3/uL Mean Platelet Volume 7.6 6.9-10.8 fL Neutrophils (%) (Auto) 85.6 H 37.0-80.0 % Lymphocytes (%) (Auto) 6.4 L 10.0-50.0 % Monocytes (%) (Auto) 7.6 0.0-12.0 % Eosinophils (%) (Auto) 0.2 0.0-7.0 % Basophils (%) (Auto) 0.2 0.0-2.0 % Neutrophils # (Auto) 13.5 H 1.6-8.6 10 ^3/uL Lymphocytes # (Auto) 1.0 0.4-5.4 10 ^3/uL Monocytes # (Auto) 1.2 0-1.3 10 ^3/uL Eosinophils # (Auto) 0 0-0.8 10 ^3/uL Basophils # (Auto) 0 0-0.2 10 ^3/uL Nucleated Red Blood Cells 0.1 % Sodium Level 138 136-145 mmol/L Potassium Level 3.5 3.5-5.1 mmol/L Chloride Level 103 98-107 mmol/L Carbon Dioxide Level 28 20-31 mmol/L Anion Gap 7 5-15 Blood Urea Nitrogen 17 9-23 mg/dL Creatinine 0.99 0.700-1.30 mg/dL Glomerular Filtration Rate Calc 79 >90 mL/min BUN/Creatinine Ratio 17.2 10.0-20.0 Serum Glucose 221 H 74-106 mg/dL Calcium Level 9.1 8.7-10.4 mg/dL Total Bilirubin 1.3 H 0.2-1.0 mg/dL Aspartate Amino Transferase (AST) 9 L 13-40 U/L Alanine Aminotransferase (ALT) 11 7-40 U/L Alkaline Phosphatase 93 46-116 U/L Total Protein 6.4 5.7-8.2 g/dL Albumin 3.7 3.2-4.8 g/dL Urine Color Light-orange Yellow Urine Clarity Ex.turbid Clear Urine pH 5.5 5.0-9.0 Urine Specific [place] 1.017 1.001-1.035 Urine Protein 1+ H Negative Urine Ketones Trace Negative Urine Blood 2+ H Negative /uL Urine Nitrite 2+ H Negative Urine Bilirubin Negative Negative Urine Urobilinogen Normal Negative mg/dL Urine Leukocyte Esterase 3+ Negative /uL Urine RBC 158 0 - 3 /hpf Urine WBC Clumps Present None Seen /hpf Urine Microscopic WBC 1959 H 0-3 /HPF Urine Squamous Epithelial Cells None seen <5 /hpf Urine Bacteria None seen None Seen /hpf Urine Glucose 3+ H Normal mg/dL Urine Opiates Screen Pos NEGATIVE Urine Fentanyl Screen Neg NEGATIVE Urine Barbiturates Screen Neg NEGATIVE Urine Phencyclidine Screen Neg NEGATIVE Urine Amphetamines Screen Neg NEGATIVE Urine Benzodiazepines Screen Neg NEGATIVE Urine Cocaine Screen Neg NEGATIVE Urine Cannabinoids Screen Neg NEGATIVE Hemoglobin A1c 9.1 H <5.7 % A1C Lactic Acid Level 1.8 0.4-2.0 mmol/L Microbiology Date/Time Source Procedure Growth Status 09/21/24 17:02 Blood Blood Culture - Preliminary NO GROWTH AFTER 24 HOURS OF INCUBATION. Resulted Assessment Stenosis of proximal celiac artery. Rule out structural heart disease. Acute urinary tract infection. Obstructive sleep apnea with CPAP use. COPD. Type 2 diabetes mellitus. Chronic kidney disease. Benign prostatic hyperplasia. Urinary retention requiring self catheterization. Morbid obesity. Plan/Recommendation I agree with your ongoing assessment and care of plan. Patient has been seen by Katy Aagrwal NP on my behalf, her and I discussed the plan with the patient. We will proceed with obtaining a transthoracic echocardiogram to evaluate cardiac function. 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 We will recommend to consult Interventional Radiology at this time. Continue with close cardiac surveillance. Additional plan as per the hospital course. Plan discussed with: Patient NYHA Physical activity limitations: NA Date of Service: Sep 23, 2024 Billing Provider: DENVER MINA MD Cardiology Common Codes: [id number] INP/OBS CARE (High) Cardiology Consultation Codes: [id number] CONSULT <45MIN DENVER MINA MD Sep 23, 2024 17:21
[2024-09-24] VITALS (7 sets, daily range): BP systolic 123–155; BP diastolic 64–87; PULSE 62–72; RESP 15–18; TEMP 97.1–98.4; O2SAT 94–98
--- NOTE | 2024-09-24 04:11 | DVH ---
MRI Abdomen, without and with IV Contrast Exam Date: 09/23/2024 04:24 PM Comparison: CT dated 09/21/2024 History: 1 cm hypodense lesion left lobe of the liver Technique: Multisequence multiplanar MRI images were obtained of the abomen. Multiphasic pre and postcontrast imaging was obtained. Findings: Trace bilateral pleural effusions. Liver: The liver is normal in size without focal lesions. Normal liver contour. No definite apprecia ble left hepatic dome lesion. Spleen: Unremarkable. Pancreas: The pancreas is normal in appearance without focal lesions. Gallbladder and ducts: Gallbladder is surgically absent. The cystic duct, right and left hepatic duct s, common hepatic duct, and common bile ducts are unremarkable. The pancreatic duct is within normal limits. Adrenal glands: Left adrenal gland is unremarkable. 1 cm right adrenal nodule is indeterminate. Kidneys: Normal enhancement without suspicious lesions or hydronephrosis. Visualized bowel: Grossly unremarkable. Vasculature: Unremarkable. Lymphadenopathy: No evidence for lymphadenopathy. Ascites: Absent. Musculoskeletal: Bone marrow signal is normal. IMPRESSION: Indeterminate 1.0 cm right adrenal nodule. This can be further evaluated with nonemergent MRI or CT a drenal mass protocol. Area in question on CT in the left hepatic lobe is suboptimally evaluated on current examination like ly related to patient motion and respiratory motion artifact. No definite suspicious findings is pres ent in the liver.
--- NOTE | 2024-09-24 10:26 | DVHINCON2 ---
Date of service: Sep 24, 2024 Referring Physician Kenney Reason for Consultation bladder stone History of Present Illness History Source: Patient, RN Notes, MD Notes Exam Limitations: No limitations HPI 74 yo male with BPH presents with c/o urinary retention. Pt normally self caths but was experiencing retention and so a carvajal was placed 09/22/24. He was found to have a bladder stone 1.3 cm. He is pain free and there is no hematuria. Home Meds Active Scripts Aspirin (Asa) 81 Mg Ch, 81 MG PO DAILY, #30 Prov:ESTEFANY JAFFE MD 03/14/15 Metoprolol Tartrate (Lopressor) 25 Mg Tb, 25 MG PO BID, #60 Prov:ESTEFANY JAFFE MD 03/14/15 Reported Medications Insulin Aspart Protamine & Asp (Insulin Aspart Protamine/ (70-30) 100 Unit/ml) 1 Inj Inj, 1 INJ SC BID, INJ 09/22/24 Oxybutynin Chloride (Ditropan Xl) 5 Mg Tab, 5 MG PO BID, TAB 03/06/15 Omeprazole ([facility]vs Omeprazole) 20 Mg Tab, 20 MG PO BIDAC, TAB 03/06/15 Metformin Hydrochloride (Metformin Hcl) 500 Mg Tab, 250 MG PO DAILY, #60 TAB 3 Refills 03/06/15 Hydrochlorothiazide (Hydrochlorothiazide) 25 Mg Tab, 1 TAB PO DAILY, #30 TAB 5 Refills 03/06/15 Gabapentin (Gabapentin) 300 Mg Cap, 1 CAP PO TID, #90 CAP 5 Refills 03/06/15 Cetirizine Hcl (Cetirizine Hcl) 10 Mg Tab, 10 MG PO DAILYP PRN for NASAL CONGESTION, TAB 03/06/15 Baclofen (Baclofen) 20 Mg Tab, 1 TAB PO TID, #90 TAB 2 Refills 03/06/15 Atorvastatin Calcium (ATORVASTATIN CALCIUM) 10 Mg Tab, 1 TAB PO DAILY, #30 TAB 5 Refills 03/06/15 Allopurinol (Allopurinol) 100 Mg Tab, 100 MG PO DAILY for 30 Days, MG 03/06/15 Past Medical History Renal/: Benign prostatic enlarg. Patient Family History: FH: ADHD (attention deficit hyperactivity disorder) G8 BROTHER 19 CHILD Family history: Asthma G8 MOTHER Family history: Cardiovascular disease G8 SISTER Review of Systems Constitutional: No symptom reported Ears, Nose, & Throat: No symptom reported Eyes: No symptom reported Pulmonary/Respiratory: No symptom reported Cardiovascular: No symptom reported Gastrointestinal: No symptom reported Genitourinary: No symptom reported Musculoskeletal: No symptom reported Skin: No symptom reported Psychiatric: No symptom reported Endocrine: No symptom reported Hemotologic/Lymphatic: No symptom reported H&P Exam Vital Signs Vital Signs Date Time Temp Pulse Resp B/P (MAP) Pulse Ox O2 Delivery O2 Flow Rate FiO2 09/24/24 08:49 97.1 64 18 123/71 (88) 97 97.1 09/24/24 08:00 Nasal Cannula* 2 28 Labs/Xrays Labs Test 09/24/24 09:58 09/22/24 05:23 09/22/24 03:30 09/21/24 16:20 Range/Units POC Glucose 220 H 70-106 mg/dl White Blood Count 15.7 H 4.4-10.8 10^3/uL Red Blood Count 4.68 4.5-5.90 10^6/uL Hemoglobin 12.8 L 13.5-17.5 g/dL Hematocrit 37.7 L 41.0-53.0 % Mean Corpuscular Volume 80.6 80.0-100.0 fL Mean Corpuscular Hemoglobin 27.3 L 28.0-32.0 pg Mean Corpuscular Hemoglobin Concent 33.9 32.0-36.0 g/dL Red Cell Distribution Width 15.0 H 11.8-14.3 % Platelet Count 185 140-450 10^3/uL Mean Platelet Volume 7.6 6.9-10.8 fL Neutrophils (%) (Auto) 85.6 H 37.0-80.0 % Lymphocytes (%) (Auto) 6.4 L 10.0-50.0 % Monocytes (%) (Auto) 7.6 0.0-12.0 % Eosinophils (%) (Auto) 0.2 0.0-7.0 % Basophils (%) (Auto) 0.2 0.0-2.0 % Neutrophils # (Auto) 13.5 H 1.6-8.6 10 ^3/uL Lymphocytes # (Auto) 1.0 0.4-5.4 10 ^3/uL Monocytes # (Auto) 1.2 0-1.3 10 ^3/uL Eosinophils # (Auto) 0 0-0.8 10 ^3/uL Basophils # (Auto) 0 0-0.2 10 ^3/uL Nucleated Red Blood Cells 0.1 % Sodium Level 138 136-145 mmol/L Potassium Level 3.5 3.5-5.1 mmol/L Chloride Level 103 98-107 mmol/L Carbon Dioxide Level 28 20-31 mmol/L Anion Gap 7 5-15 Blood Urea Nitrogen 17 9-23 mg/dL Creatinine 0.99 0.700-1.30 mg/dL Glomerular Filtration Rate Calc 79 >90 mL/min BUN/Creatinine Ratio 17.2 10.0-20.0 Serum Glucose 221 H 74-106 mg/dL Calcium Level 9.1 8.7-10.4 mg/dL Total Bilirubin 1.3 H 0.2-1.0 mg/dL Aspartate Amino Transferase (AST) 9 L 13-40 U/L Alanine Aminotransferase (ALT) 11 7-40 U/L Alkaline Phosphatase 93 46-116 U/L Total Protein 6.4 5.7-8.2 g/dL Albumin 3.7 3.2-4.8 g/dL Urine Color Light-orange Yellow Urine Clarity Ex.turbid Clear Urine pH 5.5 5.0-9.0 Urine Specific [place] 1.017 1.001-1.035 Urine Protein 1+ H Negative Urine Ketones Trace Negative Urine Blood 2+ H Negative /uL Urine Nitrite 2+ H Negative Urine Bilirubin Negative Negative Urine Urobilinogen Normal Negative mg/dL Urine Leukocyte Esterase 3+ Negative /uL Urine RBC 158 0 - 3 /hpf Urine WBC Clumps Present None Seen /hpf Urine Microscopic WBC 1959 H 0-3 /HPF Urine Squamous Epithelial Cells None seen <5 /hpf Urine Bacteria None seen None Seen /hpf Urine Glucose 3+ H Normal mg/dL Urine Opiates Screen Pos NEGATIVE Urine Fentanyl Screen Neg NEGATIVE Urine Barbiturates Screen Neg NEGATIVE Urine Phencyclidine Screen Neg NEGATIVE Urine Amphetamines Screen Neg NEGATIVE Urine Benzodiazepines Screen Neg NEGATIVE Urine Cocaine Screen Neg NEGATIVE Urine Cannabinoids Screen Neg NEGATIVE Hemoglobin A1c 9.1 H <5.7 % A1C Lactic Acid Level 1.8 0.4-2.0 mmol/L Microbiology Date/Time Source Procedure Growth Status 09/22/24 14:00 Voided Urine Urine Culture - Final Klebsiella oxytoca Complete 09/21/24 17:02 Blood Blood Culture - Preliminary NO GROWTH AFTER 48 HOURS OF INCUBATION. Resulted Assessment/Plan Problem List: (1) BPH (benign prostatic hyperplasia) (2) Calculus in bladder Plan d/c with [facility]al [facility] need [facility] eventually urology signing off Plan discussed with: Other VICKI CARCAMO NP Sep 24, 2024 10:26
--- NOTE | 2024-09-24 12:43 | DVHPN2 ---
Reviewed: Care Plan, H&P, Labs, Medications, Previous Orders, Radiology Changes from previous H/P or p: No Changes Eyes: No Pain, No Vision change, No Conjunctivae inflammation, No Eyelid inflammation, No Other, No Redness ENT: No Ear pain, No Ear discharge, No Nose pain, No Nose discharge, No Nose congestion, No Mouth pain, No Mouth swelling, No Throat pain, No Throat swelling, No Other Cardiovascular: No Chest Pain, No Palpitations, No Orthopnea, No Paroxysmal Noc. Dyspnea, No Edema, No Lt Headedness, No Other Respiratory: No Cough, No Dry, No Shortness of breath, No SOB with excertion, No Wheezing, No Hemoptysis, No Pleuritic Pain, No Sputum, No Other Gastrointestinal: No Nausea, No Vomiting, No Abdominal Pain, No Diarrhea, No Constipation, No Melena, No Hematochezia, No Other Genitourinary: Dysuria, Frequency, Incontinence; No Hematuria; Retention; No Other Musculoskeletal: No other, No neck pain, No shoulder pain, No arm pain, No back pain, No hand pain, No leg pain, No foot pain Skin: No Rash, No Lesions, No Jaundice, No Bruising, No Other Objective Vitals Vital Signs Date Time Temp Pulse Resp B/P (MAP) Pulse Ox O2 Delivery O2 Flow Rate FiO2 09/24/24 08:49 97.1 64 18 123/71 (88) 97 97.1 09/24/24 08:00 Nasal Cannula* 2 28 Intake/Output Intake and Output 09/24/24 07:00 Intake Total 2450 ml Output Total 4400 ml Balance -1950 ml Intake Oral 1400 ml IV Total 1050 ml Output Urine Total 4400 ml Medications Current Medications Medications Dose Ordered Sig/Tila Route Start Time Stop Time Status Last Admin Dose Admin Ondansetron HCl 4 mg Q4HP PRN IV 09/21/24 22:30 Docusate Sodium 100 mg BIDPRN PRN PO 09/21/24 22:30 Acetaminophen 650 mg Q6HP PRN PO 09/21/24 22:30 09/22/24 03:40 650 MG Morphine Sulfate 2 mg Q4HPRN PRN IV 09/21/24 22:30 09/22/24 03:26 2 MG Nitroglycerin 0.4 mg Q5MINP PRN SL 09/21/24 22:30 Morphine Sulfate 2 mg Q30M PRN IV 09/21/24 22:30 Allopurinol 100 mg DAILY PO 09/22/24 10:00 09/24/24 09:25 100 MG Aspirin 81 mg DAILY PO 09/22/24 10:00 09/24/24 09:25 81 MG Atorvastatin Calcium 10 mg HS PO 09/21/24 22:45 09/23/24 21:30 10 MG Baclofen 10 mg TID PO 09/22/24 06:00 09/24/24 06:03 10 MG Loratadine 10 mg HSPRN PRN PO 09/21/24 22:45 Oxybutynin Chloride 5 mg BID PO 09/21/24 22:45 09/24/24 09:25 5 MG Diagnostic Test (Pha) 1 strip ACHS 09/22/24 07:00 09/24/24 12:28 1 STRIP Insulin Human Regular ACHS SC 09/22/24 07:00 09/24/24 12:33 6 UNITS Dextrose 50 ml UD PRN IV 09/22/24 00:00 Insulin Glargine 20 units DAILY@1000 SC 09/22/24 08:00 09/24/24 10:37 20 UNITS Ceftriaxone Sodium 50 ml @ 100 mls/hr DAILY@09 IV 09/23/24 09:00 09/24/24 09:19 100 MLS/HR Sodium Chloride 1,000 ml @ 150 mls/hr Q6H40M IV 09/22/24 13:45 09/23/24 23:05 150 MLS/HR Ketorolac Tromethamine 15 mg Q6HPRN PRN IV 09/22/24 14:00 09/27/24 13:59 09/23/24 10:14 15 MG Laboratory Results Laboratory Tests 09/22/24 05:23 Urinalysis Test 09/22/24 03:30 Urine Color Light-orange (Yellow) Urine Clarity Ex.turbid (Clear) Urine pH 5.5 (5.0-9.0) Urine Specific [place] 1.017 (1.001-1.035) Urine Protein 1+ (Negative) H Urine Ketones Trace (Negative) Urine Blood 2+ /uL (Negative) H Urine Nitrite 2+ (Negative) H Urine Bilirubin Negative (Negative) Urine Urobilinogen Normal mg/dL (Negative) Urine Leukocyte Esterase 3+ /uL (Negative) Urine RBC 158 /hpf (0 - 3) Urine WBC Clumps Present /hpf (None Seen) Urine Microscopic WBC 1959 /HPF (0-3) H Urine Squamous Epithelial Cells None seen /hpf (<5) Urine Bacteria None seen /hpf (None Seen) Urine Glucose 3+ mg/dL (Normal) H Microbiology Microbiology Date/Time Source Procedure Growth Status 09/22/24 14:00 Voided Urine Urine Culture - Final Klebsiella oxytoca Complete 09/21/24 17:02 Blood Blood Culture - Preliminary NO GROWTH AFTER 48 HOURS OF INCUBATION. Resulted Assessment/Plan Assessment/Plan Sepsis secondary to urinary tract infection WBC 20 K: Blood cultures negative, urine cultures growing Klebsiella oxytoca, continue Rocephin Bladder calculus 1.3 cm consult for Urology Dr. Castro, advised [facility] and advised Gongora with leg bag Gout Hypercholesterolemia Osteoarthritis Hypertension Diabetes Diabetic neuropathy vasculopathy Ventral hernia Chronic back pain Stenosis of the celiac artery: Cardiology consult by Dr. Gerson Hoyt appreciated, advised intervention radiology consultation which was placed 1 cm hypodense lesion left lobe of the liver: MRI of the abdomen with and without contrast is negative for any liver lesion BPH patient does self catheterization at home. Time Spent 50 minutes Advanced care planning time 20 minutes Patient is full code Plan discussed with: Patient My Orders Orders - RACHEL CASAS MD Procedure Category Date Status Time * Radiologist Consult CONS 09/24/24 Transmitted 12:34 Date of Service: Sep 24, 2024 Billing Provider: RACHEL CASAS MD Common Visit Codes: [id number] INP/OBS CARE(HIGH) RACHEL CASAS MD Sep 24, 2024 12:43
[2024-09-24 14:04] LABS: Basophils # (auto) 0 10 ^3/uL (0-0.2); Basophils % (auto) 0.5 % (0.0-2.0); Eosinophils # (auto) 0.2 10 ^3/uL (0-0.8); Eosinophils % (auto) 2.4 % (0.0-7.0); Hematocrit 38.3 % (41.0-53.0); Hemoglobin 13.2 g/dL (13.5-17.5); Lymphocytes # (auto) 0.8 10 ^3/uL (0.4-5.4); Lymphocytes % (auto) 8.8 % (10.0-50.0); Mean Corpuscular Hemoglobin 27.9 pg (28.0-32.0); Mean Corpuscular Hgb Conc. 34.6 g/dL (32.0-36.0); Mean Corpuscular Volume 80.8 fL (80.0-100.0); Monocytes # (auto) 0.7 10 ^3/uL (0-1.3); Monocytes % (auto) 7.6 % (0.0-12.0); Neutrophils # (auto) 7.4 10 ^3/uL (1.6-8.6); Neutrophils % (auto) 80.7 % (37.0-80.0); Platelet Count (auto) 225 10^3/uL (140-450); Red Blood Cells 4.74 10^6/uL (4.5-5.90); Red Cell Distribution Width 14.5 % (11.8-14.3); White Blood Cell 9.2 10^3/uL (4.4-10.8)
[2024-09-24 14:23] LABS: Alanine Aminotransferase 17 U/L (7-40); Albumin 3.8 g/dL (3.2-4.8); Alkaline Phosphatase 90 U/L (46-116); Anion Gap 8 (5-15); Aspartate Aminotransferase 16 U/L (13-40); BUN/Creatinine Ratio 10.8 (10.0-20.0); Blood Urea Nitrogen 9 mg/dL (9-23); Calcium 9.1 mg/dL (8.7-10.4); Carbon Dioxide 28 mmol/L (20-31); Chloride 104 mmol/L (98-107); Potassium 3.6 mmol/L (3.5-5.1); Sodium 140 mmol/L (136-145); Total Protein 6.7 g/dL (5.7-8.2)
[2024-09-24 14:24] LABS: Bilirubin, Total 0.5 mg/dL (0.2-1.0)
[2024-09-24 14:26] LABS: Glucose 232 mg/dL (74-106)
[2024-09-24] MEDS ORDERED: IOHEXOL 300 MG/ML 100ML BOTTLE IJ ONE (14:41)
--- NOTE | 2024-09-24 15:39 | DVH ---
CT CT AB PEL WITH IV CON ONLY INDICATION: EVAL CELIAC ARTERY COMPR. SYNDROME EXAM DATE: 09/24/2024 02:55 PM COMPARISON: 09/23/24 RADIATION DOSE: CTDIvol: 25.97 mGy, DLP: 1285.72 mGy*cm PROCEDURE: Helical CT images were obtained of the abdomen and pelvis with IV contrast Sagittal and co brooke reconstructions are provided. ORAL CONTRAST: None. ADDITIONAL IMAGES / REFORMATS: None All CT s cans at this medical facility are performed using dose modulation techniques as appropriate to a perf ormed exam including the following: Automated exposure control was utilized; adjustment of the MA and /or KV according to patient size; and use of iterative reconstruction technique. FINDINGS: LUNG BASE: There is bibasilar atelectasis and trace pleural effusion. LIVER: Previously noted left hepatic lobe lesion is not well visualized on this exam. GALLBLADDER AND BILIARY TREE: Maya clips are seen. No intra- or extrahepatic biliary ductal dilation . PANCREAS: Normal. SPLEEN: Normal. BOWEL: Normal. The appendix is not seen. ADRENALS: 1.2 cm right adrenal nodule. KIDNEYS AND URETER: Normal. BLADDER: Gongora in the bladder with a bladder stone and wall thickening could be cystitis. REPRODUCTIVE ORGANS: Normal. LYMPH NODES:No lymphadenopathy. PERITONEUM: No ascites or free air. No other fluid collection. VESSELS: Scattered atherosclerotic calcifications are noted. There is a J-shape configuration of the proximal celiac artery with post stenotic dilation. The SMA and KAELA are patent. 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 RETROPERITONEUM: Normal. ABDOMINAL WALL: Fat containing inguinal hernias. BONES: Scattered osseous degenerative changes are noted. IMPRESSION: J-shape configuration of the proximal celiac artery with post stenotic dilation could be seen with me mann arcuate ligament syndrome. Consider surgical evaluation. SMA and KAELA are patent. 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 Gongora in the bladder with a bladder stone and wall thickening could be cystitis.
--- NOTE | 2024-09-24 15:57 | DVH ---
CHEST RADIOGRAPH Indication: shortness of breath Technique: Single frontal view of the chest was obtained COMPARISON: None FINDINGS: The cardiac silhouette is enlarged. The lungs demonstrate bilateral patchy airspace opacities. The pu lmonary vasculature is prominent. There is no pleural effusion.. There is no pneumothorax. Aortic ath erosclerotic disease. IMPRESSION: 1. Cardiomegaly with pulmonary vascular congestion and bilateral patchy airspace opacities.
--- NOTE | 2024-09-24 23:58 | DVHPN2 ---
Progress Note - Dictate Date Seen: Sep 24, 2024 Medical Necessity Reason Pt with a Central, PICC or Fol: No Subjective Patient was seen and evaluated in follow up. Patient is on 2 LPM NC. Patient is complaining of urinary symptoms. Denies any pain. Chest x-ray shows cardiomegaly with pulmonary vascular congestion and bilateral patchy airspace opacities. CT abd/pel shows a J-shape configuration of the proximal celiac artery with post stenotic dilation could be seen with median arcuate ligament syndrome. SMA and KAELA are patent. 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 Gongora in the bladder with a bladder stone and wall thickening could be cystitis. Echo is ordered/pending. Telemetry reviewed. vital signs Vital Sign Date Time Temp Pulse Resp B/P (MAP) Pulse Ox O2 Delivery O2 Flow Rate FiO2 09/24/24 21:00 98.1 69 15 155/87 (109) 96 98.1 09/24/24 20:00 Nasal Cannula* 2 28 Total Intake and Output 09/23/24 09/23/24 09/24/24 14:59 22:59 06:59 Intake Total 50 ml 800 ml 1600 ml Output Total 2000 ml 2400 ml Balance 50 ml -1200 ml -800 ml medications Current Medications Medications Dose Ordered Sig/Tila Route Start Time Stop Time Status Last Admin Dose Admin Ondansetron HCl 4 mg Q4HP PRN IV 09/21/24 22:30 Docusate Sodium 100 mg BIDPRN PRN PO 09/21/24 22:30 Acetaminophen 650 mg Q6HP PRN PO 09/21/24 22:30 09/22/24 03:40 650 MG Morphine Sulfate 2 mg Q4HPRN PRN IV 09/21/24 22:30 09/22/24 03:26 2 MG Nitroglycerin 0.4 mg Q5MINP PRN SL 09/21/24 22:30 Morphine Sulfate 2 mg Q30M PRN IV 09/21/24 22:30 Allopurinol 100 mg DAILY PO 09/22/24 10:00 09/24/24 09:25 100 MG Aspirin 81 mg DAILY PO 09/22/24 10:00 09/24/24 09:25 81 MG Atorvastatin Calcium 10 mg HS PO 09/21/24 22:45 09/24/24 22:06 10 MG Baclofen 10 mg TID PO 09/22/24 06:00 09/24/24 22:06 10 MG Loratadine 10 mg HSPRN PRN PO 09/21/24 22:45 Oxybutynin Chloride 5 mg BID PO 09/21/24 22:45 09/24/24 22:06 5 MG Diagnostic Test (Pha) 1 strip ACHS 09/22/24 07:00 09/24/24 22:10 1 STRIP Insulin Human Regular ACHS SC 09/22/24 07:00 09/24/24 22:10 6 UNITS Dextrose 50 ml UD PRN IV 09/22/24 00:00 Insulin Glargine 20 units DAILY@1000 SC 09/22/24 08:00 09/24/24 10:37 20 UNITS Ceftriaxone Sodium 50 ml @ 100 mls/hr DAILY@09 IV 09/23/24 09:00 09/24/24 09:19 100 MLS/HR Sodium Chloride 1,000 ml @ 150 mls/hr Q6H40M IV 09/22/24 13:45 09/24/24 17:56 150 MLS/HR Ketorolac Tromethamine 15 mg Q6HPRN PRN IV 09/22/24 14:00 09/27/24 13:59 09/23/24 10:14 15 MG objective GENERAL: Alert and oriented x 3. No acute distress. Morbid obesity. EYES: PERRL, EOMI. Anicteric. HENT: Moist mucous membranes. LUNGS: Clear to auscultation bilaterally. CARDIOVASCULAR: Regular rate and rhythm. ABDOMEN: Soft, nontender and nondistended. EXTREMITIES: 3+ pitting edema. NEUROLOGIC: No focal neurological deficits. SKIN: Warm, dry. laboratory and microbiology Laboratory Tests 09/24/24 13:52 Test 09/24/24 13:52 Range/Units Serum Glucose 232 H 74-106 mg/dL Problem List Stenosis of proximal celiac artery. Rule out structural heart disease. Acute urinary tract infection. Obstructive sleep apnea with CPAP use. COPD. Type 2 diabetes mellitus. Chronic kidney disease. Benign prostatic hyperplasia. Urinary retention requiring self catheterization. Morbid obesity. Assessment/Plan Continued all current supportive medical care. Transthoracic echocardiogram to evaluate cardiac function. Aspirin, Lipitor. IV antibiotics as ordered. Morphine for pain. Nitro SL. Additional plan as per the hospital course. Plan discussed with: Patient DENVER MINA MD Sep 24, 2024 23:58
[2024-09-25] VITALS (7 sets, daily range): BP systolic 134–151; BP diastolic 71–92; PULSE 62–69; RESP 15–18; TEMP 97.6–98.5; O2SAT 93–97
[2024-09-25] MEDS ORDERED: CIPR-173 PO (10:52)
--- NOTE | 2024-09-25 10:52 | DVHPN2 ---
Reviewed: Care Plan, H&P, Labs, Medications, Previous Orders, Radiology Changes from previous H/P or p: No Changes Eyes: No Pain, No Vision change, No Conjunctivae inflammation, No Eyelid inflammation, No Other, No Redness ENT: No Ear pain, No Ear discharge, No Nose pain, No Nose discharge, No Nose congestion, No Mouth pain, No Mouth swelling, No Throat pain, No Throat swelling, No Other Cardiovascular: No Chest Pain, No Palpitations, No Orthopnea, No Paroxysmal Noc. Dyspnea, No Edema, No Lt Headedness, No Other Respiratory: No Cough, No Dry, No Shortness of breath, No SOB with excertion, No Wheezing, No Hemoptysis, No Pleuritic Pain, No Sputum, No Other Gastrointestinal: No Nausea, No Vomiting, No Abdominal Pain, No Diarrhea, No Constipation, No Melena, No Hematochezia, No Other Genitourinary: Dysuria, Frequency, Incontinence; No Hematuria; Retention; No Other Musculoskeletal: No other, No neck pain, No shoulder pain, No arm pain, No back pain, No hand pain, No leg pain, No foot pain Skin: No Rash, No Lesions, No Jaundice, No Bruising, No Other Objective Vitals Vital Signs Date Time Temp Pulse Resp B/P (MAP) Pulse Ox O2 Delivery O2 Flow Rate FiO2 09/25/24 08:59 97.8 62 18 134/75 (94) 95 97.8 09/24/24 20:00 Nasal Cannula* 2 28 Intake/Output Intake and Output 09/25/24 07:00 Intake Total 2025 ml Output Total 3850 ml Balance -1825 ml Intake Oral 925 ml IV Total 1100 ml Output Urine Total 3850 ml Medications Current Medications Medications Dose Ordered Sig/Tila Route Start Time Stop Time Status Last Admin Dose Admin Ondansetron HCl 4 mg Q4HP PRN IV 09/21/24 22:30 Docusate Sodium 100 mg BIDPRN PRN PO 09/21/24 22:30 Acetaminophen 650 mg Q6HP PRN PO 09/21/24 22:30 09/22/24 03:40 650 MG Morphine Sulfate 2 mg Q4HPRN PRN IV 09/21/24 22:30 09/22/24 03:26 2 MG Nitroglycerin 0.4 mg Q5MINP PRN SL 09/21/24 22:30 Morphine Sulfate 2 mg Q30M PRN IV 09/21/24 22:30 Allopurinol 100 mg DAILY PO 09/22/24 10:00 09/25/24 09:06 100 MG Aspirin 81 mg DAILY PO 09/22/24 10:00 09/25/24 09:06 81 MG Atorvastatin Calcium 10 mg HS PO 09/21/24 22:45 09/24/24 22:06 10 MG Baclofen 10 mg TID PO 09/22/24 06:00 09/25/24 06:02 10 MG Loratadine 10 mg HSPRN PRN PO 09/21/24 22:45 Oxybutynin Chloride 5 mg BID PO 09/21/24 22:45 09/25/24 09:06 5 MG Diagnostic Test (Pha) 1 strip ACHS 09/22/24 07:00 09/25/24 06:02 1 STRIP Insulin Human Regular ACHS SC 09/22/24 07:00 09/25/24 06:02 4 UNITS Dextrose 50 ml UD PRN IV 09/22/24 00:00 Insulin Glargine 20 units DAILY@1000 SC 09/22/24 08:00 09/25/24 09:55 20 UNITS Ceftriaxone Sodium 50 ml @ 100 mls/hr DAILY@09 IV 09/23/24 09:00 09/25/24 09:08 100 MLS/HR Sodium Chloride 1,000 ml @ 150 mls/hr Q6H40M IV 09/22/24 13:45 09/24/24 17:56 150 MLS/HR Ketorolac Tromethamine 15 mg Q6HPRN PRN IV 09/22/24 14:00 09/27/24 13:59 09/23/24 10:14 15 MG Laboratory Results Laboratory Tests 09/24/24 13:52 Chemistry Test 09/24/24 13:52 Albumin 3.8 g/dL (3.2-4.8) Calcium Level 9.1 mg/dL (8.7-10.4) Total Protein 6.7 g/dL (5.7-8.2) LFT Test 09/24/24 13:52 Alanine Aminotransferase (ALT) 17 U/L (7-40) Alkaline Phosphatase 90 U/L (46-116) Aspartate Amino Transferase (AST) 16 U/L (13-40) Total Bilirubin 0.5 mg/dL (0.2-1.0) Urinalysis Test 09/22/24 03:30 Urine Color Light-orange (Yellow) Urine Clarity Ex.turbid (Clear) Urine pH 5.5 (5.0-9.0) Urine Specific [place] 1.017 (1.001-1.035) Urine Protein 1+ (Negative) H Urine Ketones Trace (Negative) Urine Blood 2+ /uL (Negative) H Urine Nitrite 2+ (Negative) H Urine Bilirubin Negative (Negative) Urine Urobilinogen Normal mg/dL (Negative) Urine Leukocyte Esterase 3+ /uL (Negative) Urine RBC 158 /hpf (0 - 3) Urine WBC Clumps Present /hpf (None Seen) Urine Microscopic WBC 1959 /HPF (0-3) H Urine Squamous Epithelial Cells None seen /hpf (<5) Urine Bacteria None seen /hpf (None Seen) Urine Glucose 3+ mg/dL (Normal) H Microbiology Microbiology Date/Time Source Procedure Growth Status 09/22/24 14:00 Voided Urine Urine Culture - Final Klebsiella oxytoca Complete 09/21/24 17:02 Blood Blood Culture - Preliminary NO GROWTH AFTER 72 HOURS OF INCUBATION. Resulted Labs and/or images reviewed: Labs reviewed by me, Image(s) reviewed by me Assessment/Plan Assessment/Plan Sepsis secondary to urinary tract infection WBC 20 K: Blood cultures negative, urine cultures growing Klebsiella oxytoca, continue Rocephin Bladder calculus 1.3 cm consult for Urology Dr. Castro, advised [facility] and advised Gongora with leg bag Gout Hypercholesterolemia Osteoarthritis Hypertension Diabetes Diabetic neuropathy vasculopathy Ventral hernia Chronic back pain Stenosis of the celiac artery: Cardiology consult by Dr. Gerson Hoyt appreciated, advised intervention radiology consultation was done. 1 cm hypodense lesion left lobe of the liver: MRI of the abdomen with and without contrast is negative for any liver lesion BPH patient does self catheterization at home. Time Spent 50 minutes Advanced care planning time 20 minutes Patient is full code Plan discussed with: Patient My Orders Orders - RACHEL CASAS MD Procedure Category Date Status Time * Radiologist Consult CONS 09/24/24 Transmitted 12:34 Chest Portable XY 09/24/24 Resulted 12:39 Ct Ab Pel With Iv Con CT 09/24/24 Resulted Only 13:05 Soft Diet DIET 09/25/24 Transmitted Breakfast Date of Service: Sep 25, 2024 Billing Provider: RACHEL CASAS MD Common Visit Codes: [id number] INP/OBS CARE(HIGH) RACHEL CASAS MD Sep 25, 2024 10:52
--- NOTE | 2024-09-25 10:58 | DVHDS2 ---
Discharge Summary Date of Admission Sep 21, 2024 at 22:20 Date of Discharge: Sep 25, 2024 Admitting Diagnosis Sepsis secondary to urinary tract infection Wounds: None Labs/Diagnostic Data: Laboratory Results Test 09/25/24 09:40 09/24/24 13:52 09/22/24 03:30 09/21/24 16:20 POC Glucose 280 mg/dl (70-106) White Blood Count 9.2 10^3/uL (4.4-10.8) Red Blood Count 4.74 10^6/uL (4.5-5.90) Hemoglobin 13.2 g/dL (13.5-17.5) Hematocrit 38.3 % (41.0-53.0) Mean Corpuscular Volume 80.8 fL (80.0-100.0) Mean Corpuscular Hemoglobin 27.9 pg (28.0-32.0) Mean Corpuscular Hemoglobin Concent 34.6 g/dL (32.0-36.0) Red Cell Distribution Width 14.5 % (11.8-14.3) Platelet Count 225 10^3/uL (140-450) Mean Platelet Volume 7.4 fL (6.9-10.8) Neutrophils (%) (Auto) 80.7 % (37.0-80.0) Lymphocytes (%) (Auto) 8.8 % (10.0-50.0) Monocytes (%) (Auto) 7.6 % (0.0-12.0) Eosinophils (%) (Auto) 2.4 % (0.0-7.0) Basophils (%) (Auto) 0.5 % (0.0-2.0) Neutrophils # (Auto) 7.4 10 ^3/uL (1.6-8.6) Lymphocytes # (Auto) 0.8 10 ^3/uL (0.4-5.4) Monocytes # (Auto) 0.7 10 ^3/uL (0-1.3) Eosinophils # (Auto) 0.2 10 ^3/uL (0-0.8) Basophils # (Auto) 0 10 ^3/uL (0-0.2) Nucleated Red Blood Cells 0.0 % Sodium Level 140 mmol/L (136-145) Potassium Level 3.6 mmol/L (3.5-5.1) Chloride Level 104 mmol/L (98-107) Carbon Dioxide Level 28 mmol/L (20-31) Anion Gap 8 (5-15) Blood Urea Nitrogen 9 mg/dL (9-23) Creatinine 0.83 mg/dL (0.700-1.30) Glomerular Filtration Rate Calc 91 mL/min (>90) BUN/Creatinine Ratio 10.8 (10.0-20.0) Serum Glucose 232 mg/dL (74-106) Calcium Level 9.1 mg/dL (8.7-10.4) Total Bilirubin 0.5 mg/dL (0.2-1.0) Aspartate Amino Transferase (AST) 16 U/L (13-40) Alanine Aminotransferase (ALT) 17 U/L (7-40) Alkaline Phosphatase 90 U/L (46-116) Total Protein 6.7 g/dL (5.7-8.2) Albumin 3.8 g/dL (3.2-4.8) Urine Color Light-orange (Yellow) Urine Clarity Ex.turbid (Clear) Urine pH 5.5 (5.0-9.0) Urine Specific Lancing 1.017 (1.001-1.035) Urine Protein 1+ (Negative) Urine Ketones Trace (Negative) Urine Blood 2+ /uL (Negative) Urine Nitrite 2+ (Negative) Urine Bilirubin Negative (Negative) Urine Urobilinogen Normal mg/dL (Negative) Urine Leukocyte Esterase 3+ /uL (Negative) Urine RBC 158 /hpf (0 - 3) Urine WBC Clumps Present /hpf (None Seen) Urine Microscopic WBC 1959 /HPF (0-3) Urine Squamous Epithelial Cells None seen /hpf (<5) Urine Bacteria None seen /hpf (None Seen) Urine Glucose 3+ mg/dL (Normal) Urine Opiates Screen Pos (NEGATIVE) Urine Fentanyl Screen Neg (NEGATIVE) Urine Barbiturates Screen Neg (NEGATIVE) Urine Phencyclidine Screen Neg (NEGATIVE) Urine Amphetamines Screen Neg (NEGATIVE) Urine Benzodiazepines Screen Neg (NEGATIVE) Urine Cocaine Screen Neg (NEGATIVE) Urine Cannabinoids Screen Neg (NEGATIVE) Hemoglobin A1c 9.1 % A1C (<5.7) Lactic Acid Level 1.8 mmol/L (0.4-2.0) Other Laboratory Tests 09/24/24 13:52 Brief Hx & Hospital Course: 74-year-old male with a history of hypertension diabetes hypercholesterolemia chronic back pain gout bladder calculus noncompliant came in complaining of generalized weakness found to be in sepsis secondary to urinary tract infection WBC 20 K blood cultures negative urine cultures growing Klebsiella oxytoca treated with Rocephin bladder calculus 1.3 cm urology consult by Dr. Castro advised follow up with the [facility] urologist for cystolitholapaxy patient was advised accordingly. CT also showed incidental finding of stenosis of the celiac artery cardiology consult by Dr. Hoyt advised interventional Radiology consult which was done. Also has a 1 cm hypodense lesion in the left lobe of the liver MRI of the abdomen pelvis without contrast negative for any liver lesion. The patient feels better ambulating and being discharged home on Cipro for UTI. He will follow up with the with his urologist at [facility] Consults/Reason for consult Urology Dr. Castro Cardiology Interventional radiology Operations or Procedures CT abdomen pelvis without contrast Condition at Discharge: Fair Final Diagnosis/Problems List Sepsis secondary to urinary tract infection WBC 20 K: Blood cultures negative, urine cultures growing Klebsiella oxytoca, continue Rocephin Bladder calculus 1.3 cm consult for Urology Dr. Castro, advised patient to follow up with the [facility] for cystolitholapaxy and advised [place] with leg bag Gout Hypercholesterolemia Osteoarthritis Hypertension Diabetes Diabetic neuropathy vasculopathy Ventral hernia Chronic back pain Stenosis of the celiac artery: Cardiology consult by Dr. Gerson Hoyt appreciated, advised intervention radiology consultation was done. 1 cm hypodense lesion left lobe of the liver: MRI of the abdomen with and without contrast is negative for any liver lesion BPH patient does self catheterization at home Discharge Disposition: Home Discharge Instruct/Medications Diet: Cardiac 2g Na,low cholest Activity: Light activity Follow Up/Referral: Continue all your previous home medications Follow up with the urologist at [facility] for treatment of bladder calculus Medications: Cipro Transmitted to pharmacy 39 (Time taken for discharge summary 39 minutes) Discharge Statement: "Patient was advised to return to the ER or call 911 if any headaches, dizziness, shortness of breath, chest pain, abdominal pain, bleeding, fevers, or worsening of medical condition. Patient was counseled about treatment plan, medications, possible side effects, patientverbalized understanding. All questions were answered to the best of my ability. This discharge took greater then 30 minutes in planning, reviewing documentation, counseling the patient, and discussing with other team members." ASSESSMENT ASSESSMENT Hospital Course Improved Assessment Sepsis secondary to urinary tract infection WBC 20 K: Blood cultures negative, urine cultures growing Klebsiella oxytoca, continue Rocephin Bladder calculus 1.3 cm consult for Urology Dr. Castro, advised [facility] and advised [place] with leg bag Gout Hypercholesterolemia Osteoarthritis Hypertension Diabetes Diabetic neuropathy vasculopathy Ventral hernia Chronic back pain Stenosis of the celiac artery: Cardiology consult by Dr. Gerson Hoyt appreciated, advised intervention radiology consultation was done. 1 cm hypodense lesion left lobe of the liver: MRI of the abdomen with and without contrast is negative for any liver lesion BPH patient does self catheterization at home Date of Service: Sep 25, 2024 Billing Provider: RACHEL CASAS MD Common Visit Codes: [id number] INP/OBS CARE(HIGH) RACHEL CASAS MD Sep 25, 2024 10:58
--- NOTE | 2024-09-25 22:28 | DVHPN2 ---
Progress Note - Dictate Date Seen: Sep 25, 2024 Medical Necessity Reason Pt with a Central, PICC or Fol: No Subjective Patient was seen and evaluated in follow up. Patient has no new complaints at this time. Patient denies any cardiac symptoms. Patient is cardiac stable for discharge. Telemetry reviewed. vital signs Vital Sign Date Time Temp Pulse Resp B/P (MAP) Pulse Ox O2 Delivery O2 Flow Rate FiO2 09/25/24 17:06 97.9 67 18 147/86 (106) 96 97.9 09/25/24 08:00 Nasal Cannula* 2 28 Total Intake and Output 09/24/24 09/24/24 09/25/24 15:00 23:00 07:00 Intake Total 50 ml 1675 ml 300 ml Output Total 2700 ml 1150 ml Balance 50 ml -1025 ml -850 ml objective GENERAL: Alert and oriented x 3. No acute distress. Morbid obesity. EYES: PERRL, EOMI. Anicteric. HENT: Moist mucous membranes. LUNGS: Clear to auscultation bilaterally. CARDIOVASCULAR: Regular rate and rhythm. ABDOMEN: Soft, nontender and nondistended. EXTREMITIES: 3+ pitting edema. NEUROLOGIC: No focal neurological deficits. SKIN: Warm, dry. laboratory and microbiology Laboratory Tests 09/24/24 13:52 Test 09/24/24 13:52 Range/Units Serum Glucose 232 H 74-106 mg/dL Problem List Stenosis of proximal celiac artery. Rule out structural heart disease. Acute urinary tract infection. Obstructive sleep apnea with CPAP use. COPD. Type 2 diabetes mellitus. Chronic kidney disease. Benign prostatic hyperplasia. Urinary retention requiring self catheterization. Morbid obesity. Assessment/Plan Continued all current supportive medical care. Aspirin, Lipitor. IV antibiotics as ordered. Morphine for pain. Nitro SL. Additional plan as per the hospital course. Plan discussed with: Patient DENVER MINA MD Sep 25, 2024 22:28
== END 2024-09-25 18:40 | disposition home or self-care (01) | DRG 872 ==
LOC: EDUNIT# 15:55 → ER 15:55 → EDBD 15:55 → OVERFLOW 22:20 → TELE-WESTW 22:22
PROVIDERS: ADMIT Family Medicine; ATTEND Family Medicine
DX: A41.59 Other Gram-negative sepsis (principal); N30.00 Acute cystitis without hematuria; I77.4 Celiac artery compression syndrome; Z68.41 Body mass index [BMI] 40.0-44.9, adult; K21.9 Gastro-esophageal reflux disease without esophagitis; K59.09 Other constipation; E11.40 Type 2 diabetes mellitus with diabetic neuropathy, unspecified; K43.9 Ventral hernia without obstruction or gangrene; G89.29 Other chronic pain; E11.22 Type 2 diabetes mellitus with diabetic chronic kidney disease; E78.00 Pure hypercholesterolemia, unspecified; F43.10 Post-traumatic stress disorder, unspecified; M54.9 Dorsalgia, unspecified; M10.9 Gout, unspecified; B96.1 Klebsiella pneumoniae [K. pneumoniae] as the cause of diseases classified elsewhere; I12.9 Hypertensive chronic kidney disease with stage 1 through stage 4 chronic kidney disease, or unspecified chronic kidney disease; N18.9 Chronic kidney disease, unspecified; G47.33 Obstructive sleep apnea (adult) (pediatric); E66.01 Morbid (severe) obesity due to excess calories; F17.200 Nicotine dependence, unspecified, uncomplicated; N21.0 Calculus in bladder; N40.1 Benign prostatic hyperplasia with lower urinary tract symptoms; Z79.82 Long term (current) use of aspirin; Z79.899 Other long term (current) drug therapy; Z79.84 Long term (current) use of oral hypoglycemic drugs; Z82.5 Family history of asthma and other chronic lower respiratory diseases; Z82.49 Family history of ischemic heart disease and other diseases of the circulatory system
CPT/HCPCS: 36415; 71045; 74176; 74177; 74183; 80048; 80053; 80307; 81001; 82962; 83036; 83605; 85025; 87040; 87086; 87088; 87186; 93005; 93306; 96365; 96375; 97163; G0378; J1815; J1885